=== PATIENT | female | born 1945 | race Asian ===

== ENCOUNTER 2016-10-18 00:06 | Emergency (ER) | payer MEDICARE, MEDICAID ==
[~2016-10-18] VITALS: Ht 142.2 cm; Wt 75.0 kg
[~2016-10-18 00:06] MED LIST: AMLO10TA4 PO; COR25 PO; INSLAN SQ; INSLIS SQ; LOSA50TA20 PO; MYCO360T PO; OMEP40CA34 PO; PRED10TA PO; PROG1 PO; VIT D3 PO
[2016-10-18] MEDS ORDERED: MORPHINE SULFATE 4 MG/ML CPJ (NOT FOR IM USE) IV STA ×2 (00:55→01:56)
[2016-10-18] MEDS ORDERED: SODIUM CHLORIDE 0.9% 1,000 ML IV ONE (00:55)
[2016-10-18] MEDS ORDERED: ONDANSETRON HCL 4MG/2ML VIAL IV STA ×2 (00:55→01:56)
[2016-10-18 01:09] LABS: BASOPHILS % 0.6 % (0.0-2.0); HEMATOCRIT. 41.4 % (36.0-48.0); HEMOGLOBIN. 13.8 g/dL (12.0-16.0); LYMPHOCYTES % 10.7 % (20.0-50.0); MEAN CORPUSCULAR HEMOGLOBIN 28.4 pg (28.0-32.0); MEAN CORPUSCULAR VOLUME 84.8 fL (81.0-99.0); MEAN PLATELET VOLUME 7.8 fl (7.4-10.4); MONOCYTES % 10.1 % (2.0-8.0); NEUTROPHILS % 77.6 % (40.0-76.0); PLATELET 200 x1000/uL (130-400); RED BLOOD CELL COUNT 4.88 mill/uL (4.2-5.4); RED CELL DISTRIBUTION WIDTH 14.9 % (11.6-14.6)
[2016-10-18 01:15] LABS: CHLORIDE 109 mEq/L (98-107)
[2016-10-18 01:17] LABS: PROTHROMBIN TIME 10.8 sec
[2016-10-18 01:23] LABS: CARBON DIOXIDE 26 mEq/L (21-32)
[2016-10-18 03:57] LABS: CLARITY URINE CLOUDY (CLEAR); COLOR URINE YELLOW (YELLOW); GLUCOSE URINE NEGATIVE (NEGATIVE); KETONES URINE 1+ (NEGATIVE); LEUKOCYTE ESTERASE URINE 1+ (NEGATIVE); NITRITE URINE NEGATIVE (NEGATIVE); OCCULT BLOOD URINE TRACE (NEGATIVE); PH URINE 6.5 (4.5-8.0); PROTEIN URINE NEGATIVE (NEGATIVE); SPECIFIC GRAVITY URINE 1.041 (1.005-1.030); UROBILINOGEN URINE 0.2 E.U./dL (0.2-1.0)
[2016-10-18] MEDS ORDERED: MORPHINE SULFATE 4 MG/ML CPJ (NOT FOR IM USE) IV ONE (05:45)
[2016-10-18] MEDS ORDERED: ONDANSETRON HCL 4MG/2ML VIAL IV ONE (05:45)
[2016-10-18] MEDS ORDERED: CEFTRIAXONE 1 G PREMIX 50 ML IV ONE (06:00)
[2016-10-18 06:03] VITALS: BP 198/72
== END 2016-10-18 06:58 | disposition short-term general hospital (02) ==
LOC: ER 00:07
DX: K31.1 Adult hypertrophic pyloric stenosis (principal); N39.0 Urinary tract infection, site not specified; R10.13 Epigastric pain; R07.89 Other chest pain; I12.9 Hypertensive chronic kidney disease with stage 1 through stage 4 chronic kidney disease, or unspecified chronic kidney disease; E11.22 Type 2 diabetes mellitus with diabetic chronic kidney disease; N18.9 Chronic kidney disease, unspecified; Z94.0 Kidney transplant status; Z79.4 Long term (current) use of insulin; Z79.899 Other long term (current) drug therapy
CPT/HCPCS: 36415; 71010; 74177; 76705; 80053; 81001; 83690; 84484; 85025; 85610; 93005; 96361; 96365; 96375; 96376; 99285; J0696; J2270; J2405; J7030; A4315

== ENCOUNTER → 2017-02-21 | Outpatient (CLI) | payer MEDICARE, MEDICAID ==
[~2017-02-21] MED LIST changes: +ASPI-1159 PO; +ATOR20TA PO; +DOCU-138 PO; +KETO5DRO80 EACHEYE; +[UNRECOGNIZED DRUG - CODE] MT
== END | disposition home or self-care (01) ==
LOC: MAMMO 10:36
PROVIDERS: ATTEND Internal Medicine Nephrology
DX: Z12.31 Encounter for screening mammogram for malignant neoplasm of breast (principal)
CPT/HCPCS: G0202

== ENCOUNTER → 2018-06-13 | Outpatient (CLI) | payer MEDICARE, MEDICAID | END | disposition home or self-care (01) | LOC: US 08:38 | PROVIDERS: ATTEND Urology | DX: N39.0 Urinary tract infection, site not specified (principal) ==

== ENCOUNTER → 2018-09-11 | Outpatient (CLI) | payer MEDICARE, MEDICAID | END | disposition home or self-care (01) | LOC: US 16:00 | PROVIDERS: ATTEND Internal Medicine Nephrology | DX: M85.80 Other specified disorders of bone density and structure, unspecified site (principal); I82.401 Acute embolism and thrombosis of unspecified deep veins of right lower extremity; I11.0 Hypertensive heart disease with heart failure; I50.41 Acute combined systolic (congestive) and diastolic (congestive) heart failure | CPT/HCPCS: 71045; 73502; 93971 ==

== ENCOUNTER → 2018-09-18 | Outpatient (CLI) | payer MEDICARE, MEDICAID | END | disposition home or self-care (01) | LOC: MRI 14:28 | PROVIDERS: ATTEND Internal Medicine Nephrology | DX: M47.816 Spondylosis without myelopathy or radiculopathy, lumbar region (principal); M48.061 Spinal stenosis, lumbar region without neurogenic claudication; M43.16 Spondylolisthesis, lumbar region | CPT/HCPCS: 72148 ==

== ENCOUNTER 2018-11-28 12:23 | Inpatient (IN) | payer MEDICARE, MEDICAID ==
[~2018-11-28] VITALS: Ht 160 cm; Wt 72.2 kg
[~2018-11-28 12:23] MED LIST changes: -ASPI-1159 PO; +ASPI-1393 PO; -LOSA50TA20 PO; +LOSA50TA41 PO
[2018-11-28 13:54] LABS: HEMATOCRIT. 39.9 % (36.0-48.0); HEMOGLOBIN. 13.5 g/dL (12.0-16.0); MEAN CORPUSCULAR HEMOGLOBIN 28.3 pg (28.0-32.0); MEAN CORPUSCULAR VOLUME 83.8 fL (81.0-99.0); MEAN PLATELET VOLUME 7.9 fl (7.4-10.4); PLATELET 220 x1000/uL (130-400); RED BLOOD CELL COUNT 4.77 mill/uL (4.2-5.4); RED CELL DISTRIBUTION WIDTH 15.1 % (11.6-14.6)
[2018-11-28 14:01] LABS: CHLORIDE 109 mEq/L (98-107)
[2018-11-28 14:06] LABS: BG BASE EXCESS -1.5 mmol/L (-2.0-2.0); BG CARBOXYHEMOGLOBIN 1.3 % (0.5-1.5); BG DEOXYHEMOGLOBIN 4.9 % (0.0-5.0); BG FRACTION INSPIRED OXYGEN 28; BG METHEMOGLOBIN 0.1 % (0.0-1.5); BG OXYHEMOGLOBIN 93.7 % (94.0-97.0); BG PCO2 33.7 mmHg (35.0-45.0); BG PH 7.433 (7.350-7.450); BG PO2 77.8 mmHg (75.0-100.0); BG SAMPLE SITE RIGHT BRACHIAL; BG TOTAL HEMOGLOBIN 13.5 g/dL (12.0-18.0); BG VENT MODE NASAL CANNULA
[2018-11-28 15:12] LABS: PLATELET ESTIMATE NORMAL
[2018-11-28] MEDS ORDERED: FUROSEMIDE 40MG/4ML VIAL IVP ONE (15:45)
[2018-11-28] MEDS ORDERED: LORAZEPAM 2MG/ML CPJ IV PRN (22:00)
[2018-11-28] MEDS ORDERED: ONDANSETRON HCL 4MG/2ML INJ IV PRN (22:00)
[2018-11-28] MEDS: AMLODIPINE 10MG TABLET PO SCH (22:00)
[2018-11-28] MEDS ORDERED: HYDROCODONE/ACETAMINOPHEN 5/325MG TABLET PO PRN (22:00)
[2018-11-28] MEDS ORDERED: CLONIDINE 0.1MG TABLET PO PRN (22:00)
[2018-11-28] MEDS ORDERED: LEVVL SQ (22:18)
[2018-11-28 22:30] VITALS: BP 150/74
[2018-11-28] MEDS: TACROLIMUS 0.5 MG CAPSULE PO SCH (23:00)
[2018-11-28] MEDS: ATORVASTATIN CALCIUM 20MG TABLET PO SCH (23:00)
[2018-11-28] MEDS ORDERED: DEXTROSE 50% WATER 50ML SYRINGE IV PRN (23:15)
[2018-11-29 01:02] LABS: CREATINE KINASE 103 IU/L (26-192)
[2018-11-29 01:03] LABS: CREATINE KINASE MB FRACTION < 1.0 ng/mL (0.5-3.6)
[2018-11-29] MEDS: IPRATROPIUM/ALBUTEROL 0.5-3(2.5)MG/3ML NEB INH PRN (03:35)
[2018-11-29 04:00] VITALS: BP 141/51
[2018-11-29] MEDS: BLOOD SUGAR DIAGNOSTIC STRIP TEST SCH ×4 (07:40→21:28)
[2018-11-29] MEDS: INSULIN LISPRO 100 UNITS/ML SUBCUT SCH ×3 (07:52→18:16)
[2018-11-29 08:00] VITALS: BP 140/39
[2018-11-29 08:06] LABS: CREATINE KINASE 80 IU/L (26-192)
[2018-11-29 08:07] LABS: CREATINE KINASE MB FRACTION < 1.0 ng/mL (0.5-3.6)
[2018-11-29] MEDS ORDERED: AMLODIPINE 10MG TABLET PO SCH (09:00)
[2018-11-29] MEDS: KETOROLAC TROMETHAMINE 0.4% OPHTH 5ML EACHEYE SCH ×2 (09:50→17:04)
[2018-11-29] MEDS: ATORVASTATIN CALCIUM 20MG TABLET PO SCH (09:50)
[2018-11-29] MEDS: FUROSEMIDE 40MG/4ML VIAL IV SCH (09:50)
[2018-11-29] MEDS: TACROLIMUS 0.5 MG CAPSULE PO SCH ×2 (09:51→21:28)
[2018-11-29] MEDS: MYCOPHENOLATE SODIUM 180 MG TABLET.DR PO SCH ×2 (09:51→21:28)
[2018-11-29] MEDS: ASPIRIN 81MG EC TABLET PO SCH (09:51)
[2018-11-29] MEDS: AMLODIPINE 10MG TABLET PO SCH (09:52)
[2018-11-29] MEDS: THIAMINE HCL 100MG TABLET PO SCH (09:52)
[2018-11-29 11:06] LABS: HEMATOCRIT. 37.5 % (36.0-48.0); HEMOGLOBIN. 12.4 g/dL (12.0-16.0); MEAN CORPUSCULAR HEMOGLOBIN 27.9 pg (28.0-32.0); MEAN CORPUSCULAR VOLUME 84.6 fL (81.0-99.0); MEAN PLATELET VOLUME 8.4 fl (7.4-10.4); PLATELET 219 x1000/uL (130-400); RED BLOOD CELL COUNT 4.44 mill/uL (4.2-5.4); RED CELL DISTRIBUTION WIDTH 15.3 % (11.6-14.6)
[2018-11-29 12:00] VITALS: BP 150/51
[2018-11-29 12:07] LABS: PLATELET ESTIMATE NORMAL
[2018-11-29] MEDS ORDERED: ACETAMINOPHEN 650MG/20.3ML UDC PO PRN (13:00)
[2018-11-29] MEDS ORDERED: ENOXAPARIN 60MG/0.6ML SYR SUBCUT NR (15:15)
[2018-11-29 16:00] VITALS: BP 125/39
[2018-11-29] MEDS: CEFTRIAXONE 1 G PREMIX 50 ML IV SCH (16:50)
[2018-11-29 19:45] LABS: CLARITY URINE CLEAR (CLEAR); COLOR URINE YELLOW (YELLOW); KETONES URINE NEGATIVE (NEGATIVE); LEUKOCYTE ESTERASE URINE TRACE (NEGATIVE); NITRITE URINE NEGATIVE (NEGATIVE); OCCULT BLOOD URINE NEGATIVE (NEGATIVE); PROTEIN URINE NEGATIVE (NEGATIVE); SPECIFIC GRAVITY URINE 1.009 (1.005-1.030); UROBILINOGEN URINE 0.2 E.U./dL (0.2-1.0)
[2018-11-29 20:00] VITALS: BP 130/42
[2018-11-30] VITALS: BP 138/42
[2018-11-30 04:00] VITALS: BP 155/51
[2018-11-30] MEDS: BLOOD SUGAR DIAGNOSTIC STRIP TEST SCH ×4 (06:16→20:26)
[2018-11-30 07:07] LABS: HEMATOCRIT. 36.6 % (36.0-48.0); HEMOGLOBIN. 12.1 g/dL (12.0-16.0); MEAN CORPUSCULAR HEMOGLOBIN 27.8 pg (28.0-32.0); MEAN CORPUSCULAR VOLUME 83.8 fL (81.0-99.0); MEAN PLATELET VOLUME 8.2 fl (7.4-10.4); PLATELET 227 x1000/uL (130-400); RED BLOOD CELL COUNT 4.37 mill/uL (4.2-5.4)
[2018-11-30 08:00] VITALS: BP 153/50
[2018-11-30] MEDS: INSULIN LISPRO 100 UNITS/ML SUBCUT SCH ×4 (08:47→21:13)
[2018-11-30] MEDS: ASPIRIN 81MG EC TABLET PO SCH (08:48)
[2018-11-30] MEDS: KETOROLAC TROMETHAMINE 0.4% OPHTH 5ML EACHEYE SCH ×2 (08:48→18:36)
[2018-11-30] MEDS: ENOXAPARIN 60MG/0.6ML SYR SUBCUT SCH (08:48)
[2018-11-30] MEDS: MYCOPHENOLATE SODIUM 180 MG TABLET.DR PO SCH ×2 (08:48→21:11)
[2018-11-30] MEDS: FUROSEMIDE 40MG/4ML VIAL IV SCH (08:48)
[2018-11-30] MEDS: THIAMINE HCL 100MG TABLET PO SCH (08:48)
[2018-11-30] MEDS: TACROLIMUS 0.5 MG CAPSULE PO SCH ×2 (08:48→21:11)
[2018-11-30] MEDS: AMLODIPINE 10MG TABLET PO SCH (08:52)
[2018-11-30] MEDS: IPRATROPIUM/ALBUTEROL 0.5-3(2.5)MG/3ML NEB INH PRN ×2 (09:24→14:53)
[2018-11-30 09:30] LABS: PLATELET ESTIMATE NORMAL
[2018-11-30] MEDS ORDERED: POTASSIUM CHLORIDE 20MEQ TABLET SR PO NR (09:30)
[2018-11-30] MEDS ORDERED: MAGNESIUM 2 G PREMIX 50 ML IV SCH (11:00)
[2018-11-30] MEDS ORDERED: FUROSEMIDE 40MG/4ML VIAL IVP SCH (11:30)
[2018-11-30 12:00] VITALS: BP 160/52
[2018-11-30] MEDS: PREDNISONE 10MG TABLET PO SCH (12:10)
[2018-11-30] MEDS: MAGNESIUM OXIDE 400MG TABLET PO SCH (12:10)
[2018-11-30] MEDS: CEFTRIAXONE 1 G PREMIX 50 ML IV SCH (14:48)
[2018-11-30 16:00] VITALS: BP 141/43
[2018-11-30 20:00] VITALS: BP 142/46
[2018-12-01 00:43] VITALS: BP 144/87
[2018-12-01 04:00] VITALS: BP 155/59
[2018-12-01] MEDS: BLOOD SUGAR DIAGNOSTIC STRIP TEST SCH ×4 (05:53→21:39)
[2018-12-01 08:00] VITALS: BP 151/53
[2018-12-01] MEDS: INSULIN LISPRO 100 UNITS/ML SUBCUT SCH ×4 (08:58→21:55)
[2018-12-01] MEDS: PREDNISONE 10MG TABLET PO SCH (08:59)
[2018-12-01] MEDS: MAGNESIUM OXIDE 400MG TABLET PO SCH (08:59)
[2018-12-01] MEDS: THIAMINE HCL 100MG TABLET PO SCH (08:59)
[2018-12-01] MEDS: ASPIRIN 81MG EC TABLET PO SCH (09:00)
[2018-12-01] MEDS: TACROLIMUS 0.5 MG CAPSULE PO SCH ×2 (09:02→21:54)
[2018-12-01] MEDS: FUROSEMIDE 40MG/4ML VIAL IV SCH (09:03)
[2018-12-01] MEDS: ENOXAPARIN 60MG/0.6ML SYR SUBCUT SCH (09:05)
[2018-12-01] MEDS: KETOROLAC TROMETHAMINE 0.4% OPHTH 5ML EACHEYE SCH ×2 (09:06→17:35)
[2018-12-01] MEDS: AMLODIPINE 10MG TABLET PO SCH (09:07)
[2018-12-01] MEDS: MYCOPHENOLATE SODIUM 180 MG TABLET.DR PO SCH ×2 (09:24→21:54)
[2018-12-01 09:43] LABS: HEMATOCRIT. 38.2 % (36.0-48.0); HEMOGLOBIN. 12.7 g/dL (12.0-16.0); MEAN CORPUSCULAR VOLUME 84.2 fL (81.0-99.0); MEAN PLATELET VOLUME 8.5 fl (7.4-10.4); PLATELET 204 x1000/uL (130-400); RED BLOOD CELL COUNT 4.54 mill/uL (4.2-5.4); RED CELL DISTRIBUTION WIDTH 15.1 % (11.6-14.6)
[2018-12-01] MEDS: INSULIN GLARGINE UD 100 UNITS/ML SYR SUBCUT SCH ×3 (10:00→21:56)
[2018-12-01 10:27] LABS: PLATELET ESTIMATE NORMAL
[2018-12-01] MEDS: IPRATROPIUM/ALBUTEROL 0.5-3(2.5)MG/3ML NEB INH PRN ×2 (11:43→16:55)
[2018-12-01 12:00] VITALS: BP 147/49
[2018-12-01] MEDS ORDERED: AMLODIPINE 2.5MG TABLET PO SCH (12:00)
[2018-12-01] MEDS ORDERED: FUROSEMIDE 40MG/4ML VIAL IVP SCH (13:15)
[2018-12-01] MEDS: LOSARTAN POTASSIUM 25 MG TABLET PO SCH ×2 (13:25→21:54)
[2018-12-01] MEDS: CEFTRIAXONE 1 G PREMIX 50 ML IV SCH (15:06)
[2018-12-01 16:00] VITALS: BP 133/40
[2018-12-01 20:00] VITALS: BP 140/66
[2018-12-01] MEDS: AMLODIPINE 2.5MG TABLET PO SCH (21:00)
[2018-12-02 00:05] VITALS: BP 159/50
[2018-12-02 04:00] VITALS: BP 147/49
[2018-12-02 05:33] LABS: CHLORIDE 103 mEq/L (98-107)
[2018-12-02 06:34] LABS: BASOPHILS % 0.9 % (0.0-2.0); EOSINOPHILS % 2.4 % (0.0-5.0); HEMATOCRIT. 36.8 % (36.0-48.0); HEMOGLOBIN. 12.4 g/dL (12.0-16.0); LYMPHOCYTES % 10.2 % (20.0-50.0); MEAN CORPUSCULAR HEMOGLOBIN 28.1 pg (28.0-32.0); MEAN CORPUSCULAR VOLUME 83.4 fL (81.0-99.0); MEAN PLATELET VOLUME 8.8 fl (7.4-10.4); MONOCYTES % 11.2 % (2.0-8.0); NEUTROPHILS % 75.3 % (40.0-76.0); PLATELET 216 x1000/uL (130-400); RED BLOOD CELL COUNT 4.42 mill/uL (4.2-5.4)
[2018-12-02] MEDS: BLOOD SUGAR DIAGNOSTIC STRIP TEST SCH ×4 (07:23→21:00)
[2018-12-02] MEDS: PREDNISONE 10MG TABLET PO SCH (07:57)
[2018-12-02] MEDS: INSULIN LISPRO 100 UNITS/ML SUBCUT SCH ×3 (07:58→21:23)
[2018-12-02 08:00] VITALS: BP 141/49
[2018-12-02] MEDS: KETOROLAC TROMETHAMINE 0.4% OPHTH 5ML EACHEYE SCH ×2 (08:04→17:38)
[2018-12-02] MEDS: MAGNESIUM OXIDE 400MG TABLET PO SCH (08:05)
[2018-12-02] MEDS: AMLODIPINE 2.5MG TABLET PO SCH ×2 (08:05→21:00)
[2018-12-02] MEDS: FUROSEMIDE 40MG/4ML VIAL IV SCH (08:05)
[2018-12-02] MEDS: TACROLIMUS 0.5 MG CAPSULE PO SCH ×2 (08:06→21:24)
[2018-12-02] MEDS: THIAMINE HCL 100MG TABLET PO SCH (08:06)
[2018-12-02] MEDS: MYCOPHENOLATE SODIUM 180 MG TABLET.DR PO SCH ×2 (08:06→21:24)
[2018-12-02] MEDS: LOSARTAN POTASSIUM 25 MG TABLET PO SCH ×2 (08:06→21:24)
[2018-12-02] MEDS: ASPIRIN 81MG EC TABLET PO SCH (08:06)
[2018-12-02] MEDS: ENOXAPARIN 60MG/0.6ML SYR SUBCUT SCH (08:07)
[2018-12-02] MEDS: INSULIN GLARGINE UD 100 UNITS/ML SYR SUBCUT SCH ×2 (10:09→21:23)
[2018-12-02] MEDS ORDERED: AZITHROMYCIN 500 MG TABLET PO SCH (11:45)
[2018-12-02 12:00] VITALS: BP 141/37
[2018-12-02] MEDS ORDERED: FUROSEMIDE 40MG/4ML VIAL IVP SCH (12:45)
[2018-12-02 16:00] VITALS: BP 129/43
[2018-12-02] MEDS: CEFTRIAXONE 1 G PREMIX 50 ML IV SCH (17:38)
[2018-12-02 20:00] VITALS: BP 139/48
[2018-12-02] MEDS ORDERED: CEPHALEXIN 250 MG/5 ML 100ML PO SCH (22:00)
[2018-12-03] VITALS: BP 147/65
[2018-12-03 04:00] VITALS: BP 131/48
[2018-12-03 06:54] LABS: CHLORIDE 105 mEq/L (98-107)
[2018-12-03 07:21] LABS: BASOPHILS % 1.2 % (0.0-2.0); EOSINOPHILS % 3.4 % (0.0-5.0); HEMATOCRIT. 38.4 % (36.0-48.0); HEMOGLOBIN. 12.7 g/dL (12.0-16.0); MEAN CORPUSCULAR HEMOGLOBIN 27.7 pg (28.0-32.0); MEAN CORPUSCULAR VOLUME 83.8 fL (81.0-99.0); MEAN PLATELET VOLUME 7.9 fl (7.4-10.4); MONOCYTES % 10.8 % (2.0-8.0); NEUTROPHILS % 71.6 % (40.0-76.0); PLATELET 294 x1000/uL (130-400); RED BLOOD CELL COUNT 4.58 mill/uL (4.2-5.4)
[2018-12-03] MEDS: BLOOD SUGAR DIAGNOSTIC STRIP TEST SCH ×4 (07:25→21:19)
[2018-12-03] MEDS: INSULIN LISPRO 100 UNITS/ML SUBCUT SCH ×4 (07:25→21:20)
[2018-12-03 08:00] VITALS: BP 146/39
[2018-12-03] MEDS: KETOROLAC TROMETHAMINE 0.4% OPHTH 5ML EACHEYE SCH ×2 (08:26→17:07)
[2018-12-03] MEDS: TACROLIMUS 0.5 MG CAPSULE PO SCH ×2 (08:27→21:19)
[2018-12-03] MEDS: MYCOPHENOLATE SODIUM 180 MG TABLET.DR PO SCH ×2 (08:28→21:19)
[2018-12-03] MEDS: FUROSEMIDE 40MG/4ML VIAL IV SCH ×2 (08:28→17:06)
[2018-12-03] MEDS: ASPIRIN 81MG EC TABLET PO SCH (08:28)
[2018-12-03] MEDS: AMLODIPINE 2.5MG TABLET PO SCH ×2 (08:29→21:19)
[2018-12-03] MEDS: AZITHROMYCIN 500 MG TABLET PO SCH (08:29)
[2018-12-03] MEDS: MAGNESIUM OXIDE 400MG TABLET PO SCH (08:30)
[2018-12-03] MEDS: LOSARTAN POTASSIUM 25 MG TABLET PO SCH ×2 (08:30→21:21)
[2018-12-03] MEDS: THIAMINE HCL 100MG TABLET PO SCH (08:30)
[2018-12-03] MEDS: ENOXAPARIN 60MG/0.6ML SYR SUBCUT SCH (08:45)
[2018-12-03] MEDS: PREDNISONE 10MG TABLET PO SCH (08:45)
[2018-12-03] MEDS: FORTEO SUBCUT SCH (09:28)
[2018-12-03] MEDS: INSULIN GLARGINE UD 100 UNITS/ML SYR SUBCUT SCH ×2 (11:27→21:21)
[2018-12-03 12:00] VITALS: BP 139/45
[2018-12-03 12:55] LABS: INR 1.1; PROTHROMBIN TIME 11.2 sec (9.6-11.0)
[2018-12-03] MEDS: CEFTRIAXONE 1 G PREMIX 50 ML IV SCH (15:08)
[2018-12-03 16:00] VITALS: BP 146/45
[2018-12-03] MEDS: APIXABAN 5 MG TABLET PO SCH (17:05)
[2018-12-03 20:00] VITALS: BP 142/36
[2018-12-03] MEDS ORDERED: ENOXAPARIN 80MG/0.8ML SYR SUBCUT SCH (21:00)
[2018-12-04] VITALS: BP 140/49
[2018-12-04 04:00] VITALS: BP 147/46
[2018-12-04] MEDS: FUROSEMIDE 40MG/4ML VIAL IV SCH ×2 (06:30→17:30)
[2018-12-04 06:54] LABS: CHLORIDE 105 mEq/L (98-107)
[2018-12-04 07:01] LABS: BASOPHILS % 1.2 % (0.0-2.0); EOSINOPHILS % 2.9 % (0.0-5.0); HEMATOCRIT. 37.2 % (36.0-48.0); HEMOGLOBIN. 12.4 g/dL (12.0-16.0); LYMPHOCYTES % 14.1 % (20.0-50.0); MEAN CORPUSCULAR HEMOGLOBIN 27.8 pg (28.0-32.0); MEAN CORPUSCULAR VOLUME 83.4 fL (81.0-99.0); MEAN PLATELET VOLUME 7.7 fl (7.4-10.4); MONOCYTES % 11.1 % (2.0-8.0); NEUTROPHILS % 70.7 % (40.0-76.0); PLATELET 290 x1000/uL (130-400); RED BLOOD CELL COUNT 4.47 mill/uL (4.2-5.4); RED CELL DISTRIBUTION WIDTH 15.1 % (11.6-14.6)
[2018-12-04] MEDS: BLOOD SUGAR DIAGNOSTIC STRIP TEST SCH ×3 (07:40→17:32)
[2018-12-04 08:00] VITALS: BP 143/40
[2018-12-04] MEDS: INSULIN LISPRO 100 UNITS/ML SUBCUT SCH ×3 (08:10→17:33)
[2018-12-04] MEDS: KETOROLAC TROMETHAMINE 0.4% OPHTH 5ML EACHEYE SCH ×2 (08:54→17:30)
[2018-12-04] MEDS: PREDNISONE 10MG TABLET PO SCH (08:54)
[2018-12-04] MEDS: AMLODIPINE 2.5MG TABLET PO SCH (08:54)
[2018-12-04] MEDS: THIAMINE HCL 100MG TABLET PO SCH (08:54)
[2018-12-04] MEDS: TACROLIMUS 0.5 MG CAPSULE PO SCH (08:55)
[2018-12-04] MEDS: ASPIRIN 81MG EC TABLET PO SCH (08:55)
[2018-12-04] MEDS: APIXABAN 5 MG TABLET PO SCH ×2 (08:55→17:30)
[2018-12-04] MEDS: MYCOPHENOLATE SODIUM 180 MG TABLET.DR PO SCH (08:55)
[2018-12-04] MEDS: AZITHROMYCIN 500 MG TABLET PO SCH (08:56)
[2018-12-04] MEDS: LOSARTAN POTASSIUM 25 MG TABLET PO SCH (08:56)
[2018-12-04] MEDS: MAGNESIUM OXIDE 400MG TABLET PO SCH (08:56)
[2018-12-04] MEDS: FORTEO SUBCUT SCH (10:21)
[2018-12-04] MEDS: INSULIN GLARGINE UD 100 UNITS/ML SYR SUBCUT SCH (10:22)
[2018-12-04 12:00] VITALS: BP 125/37
[2018-12-04] MEDS: CEFTRIAXONE 1 G PREMIX 50 ML IV SCH (14:33)
[2018-12-04 16:00] VITALS: BP 143/60
[2018-12-04 16:57] VITALS: BP 143/60
[2018-12-04] MEDS ORDERED: INSULIN LISPRO 100 UNITS/ML SUBCUT NR ×2 (17:15→18:20)
== END 2018-12-04 19:30 | disposition home health service (06) | DRG 871 ==
LOC: ER 13:38 → 7WST 17:38 → EDBEDREQ 17:40 → ENRESERV 20:50
PROVIDERS: ADMIT Internal Medicine Nephrology; ATTEND Internal Medicine Nephrology
PROC: 5A09357 Assistance with Respiratory Ventilation, Less than 24 Consecutive Hours, Continuous Positive Airway Pressure (ICD-10-PCS; principal; 2018-11-30)
PROC: 5A09357 Assistance with Respiratory Ventilation, Less than 24 Consecutive Hours, Continuous Positive Airway Pressure (ICD-10-PCS; 2018-12-01)
PROC: 5A09357 Assistance with Respiratory Ventilation, Less than 24 Consecutive Hours, Continuous Positive Airway Pressure (ICD-10-PCS; 2018-12-02)
PROC: 5A09357 Assistance with Respiratory Ventilation, Less than 24 Consecutive Hours, Continuous Positive Airway Pressure (ICD-10-PCS; 2018-12-03)
PROC: 5A09357 Assistance with Respiratory Ventilation, Less than 24 Consecutive Hours, Continuous Positive Airway Pressure (ICD-10-PCS; 2018-12-04)
DX: A41.50 Gram-negative sepsis, unspecified (principal); J96.00 Acute respiratory failure, unspecified whether with hypoxia or hypercapnia; I50.33 Acute on chronic diastolic (congestive) heart failure; N39.0 Urinary tract infection, site not specified; E44.1 Mild protein-calorie malnutrition; I48.1 Persistent atrial fibrillation; Z94.0 Kidney transplant status; G47.33 Obstructive sleep apnea (adult) (pediatric); I11.0 Hypertensive heart disease with heart failure; I48.91 Unspecified atrial fibrillation; I35.0 Nonrheumatic aortic (valve) stenosis; E87.8 Other disorders of electrolyte and fluid balance, not elsewhere classified; E11.9 Type 2 diabetes mellitus without complications; E83.42 Hypomagnesemia; B96.89 Other specified bacterial agents as the cause of diseases classified elsewhere; E78.00 Pure hypercholesterolemia, unspecified; E78.5 Hyperlipidemia, unspecified; E87.6 Hypokalemia; M19.90 Unspecified osteoarthritis, unspecified site; R00.1 Bradycardia, unspecified; I27.22 Pulmonary hypertension due to left heart disease; Z79.4 Long term (current) use of insulin; Z91.81 History of falling; Z90.49 Acquired absence of other specified parts of digestive tract; Z79.899 Other long term (current) drug therapy
CPT/HCPCS: 36415; 36600; 71045; 80048; 80076; 82248; 82375; 82550; 82553; 82805; 82962; 83735; 83880; 84443; 84484; 87077; 87186; 93005; 93306; 94640; 94660; 96374; 97116; 97162; 99285; C1893; J0696; J1650; J1815; J1940; J3475; J7050; J7507; J7512; J7517; J7620

== ENCOUNTER 2019-02-18 09:57 | Inpatient (IN) | payer MEDICARE, MEDICAID ==
[~2019-02-18] VITALS: Ht 134.6 cm; Wt 67.8 kg
[2019-02-18] VITALS (8 sets, daily range): BP systolic 140–192; BP diastolic 42–111
[~2019-02-18 09:57] MED LIST changes: -COR25 PO; +LEVVL SQ; -LOSA50TA41 PO
[2019-02-18 11:02] LABS: HEMATOCRIT. 38.9 % (36.0-48.0); HEMOGLOBIN. 12.5 g/dL (12.0-16.0); MEAN CORPUSCULAR HEMOGLOBIN 27.7 pg (28.0-32.0); MEAN CORPUSCULAR VOLUME 86.3 fL (81.0-99.0); PLATELET 221 x1000/uL (130-400); RED BLOOD CELL COUNT 4.51 mill/uL (4.2-5.4); RED CELL DISTRIBUTION WIDTH 18.1 % (11.6-14.6)
[2019-02-18 11:03] LABS: CHLORIDE 111 mEq/L (98-107)
[2019-02-18 11:40] LABS: PLATELET ESTIMATE NORMAL
[2019-02-18 12:43] LABS: BG BASE EXCESS -1.5 mmol/L (-2.0-2.0); BG CARBOXYHEMOGLOBIN 0.3 % (0.5-1.5); BG DEOXYHEMOGLOBIN 0.8 % (0.0-5.0); BG FRACTION INSPIRED OXYGEN 100; BG HCO3 ACT 23.1 mmol/L (22.0-26.0); BG METHEMOGLOBIN 0.4 % (0.0-1.5); BG OXYGEN SATURATION 99.2 % (92.0-98.5); BG OXYHEMOGLOBIN 98.5 % (94.0-97.0); BG PCO2 38.5 mmHg (35.0-45.0); BG PH 7.396 (7.350-7.450); BG PO2 440.1 mmHg (75.0-100.0); BG SAMPLE SITE RIGHT BRACHIAL; BG TOTAL HEMOGLOBIN 12.2 g/dL (12.0-18.0); BG VENT MODE MASK - BIPAP; BG VENT RATE 12 set
[2019-02-18 16:30] LABS: BG CARBOXYHEMOGLOBIN 0.3 % (0.5-1.5); BG DEOXYHEMOGLOBIN 1.2 % (0.0-5.0); BG FRACTION INSPIRED OXYGEN 50; BG HCO3 ACT 24.2 mmol/L (22.0-26.0); BG METHEMOGLOBIN 0.2 % (0.0-1.5); BG OXYGEN SATURATION 98.8 % (92.0-98.5); BG OXYHEMOGLOBIN 98.3 % (94.0-97.0); BG PCO2 37.5 mmHg (35.0-45.0); BG PH 7.427 (7.350-7.450); BG PO2 177.6 mmHg (75.0-100.0); BG SAMPLE SITE RIGHT BRACHIAL; BG TOTAL HEMOGLOBIN 11.5 g/dL (12.0-18.0); BG VENT MODE MASK - BIPAP; BG VENT RATE 12 set
[2019-02-18] MEDS ORDERED: CLONIDINE 0.1MG TABLET PO PRN ×2 (20:30→21:45)
[2019-02-18] MEDS: METOPROLOL TARTRATE 25MG TABLET PO SCH (20:41)
[2019-02-18] MEDS ORDERED: MORPHINE SULFATE 2 MG/ML CPJ (NOT FOR IM USE) IV PRN (21:45)
[2019-02-18] MEDS ORDERED: HYDROCODONE/ACETAMINOPHEN 5/325MG TABLET PO PRN (21:45)
[2019-02-18] MEDS ORDERED: ONDANSETRON HCL 4MG/2ML INJ IV PRN (21:45)
[2019-02-18] MEDS ORDERED: IPRATROPIUM/ALBUTEROL 0.5-3(2.5)MG/3ML NEB NEB PRN (21:45)
[2019-02-18] MEDS ORDERED: DEXTROSE 50% WATER 50ML SYRINGE IV PRN (22:00)
[2019-02-18] MEDS: BLOOD SUGAR DIAGNOSTIC STRIP TEST SCH (22:04)
[2019-02-18] MEDS: FUROSEMIDE 40MG/4ML VIAL IV SCH (22:09)
[2019-02-18] MEDS: ENOXAPARIN 40MG/0.4ML SYR SUBCUT SCH (22:10)
[2019-02-18] MEDS: INSULIN LISPRO 100 UNITS/ML SUBCUT SCH (22:23)
[2019-02-19] VITALS (10 sets, daily range): BP systolic 109–167; BP diastolic 38–59
[2019-02-19] MEDS: BLOOD SUGAR DIAGNOSTIC STRIP TEST SCH ×4 (06:19→21:31)
[2019-02-19] MEDS: FUROSEMIDE 40MG/4ML VIAL IV SCH ×2 (06:29→16:47)
[2019-02-19] MEDS: INSULIN LISPRO 100 UNITS/ML SUBCUT SCH ×4 (06:30→21:28)
[2019-02-19] MEDS ORDERED: BLOOD SUGAR DIAGNOSTIC STRIP TEST SCH (06:50)
[2019-02-19] MEDS ORDERED: INSULIN LISPRO 100 UNITS/ML SUBCUT SCH (07:20)
[2019-02-19] MEDS: METOPROLOL TARTRATE 25MG TABLET PO SCH (09:00)
[2019-02-19] MEDS: ASPIRIN 81MG EC TABLET PO SCH (09:25)
[2019-02-19] MEDS: THIAMINE HCL 100MG TABLET PO SCH (09:25)
[2019-02-19] MEDS ORDERED: AMIO100T4 PO (09:50)
[2019-02-19] MEDS ORDERED: HYDR-4134 MT (09:50)
[2019-02-19] MEDS ORDERED: APIX5TAB MT (09:50)
[2019-02-19] MEDS ORDERED: PRED5TAB MT (09:50)
[2019-02-19] MEDS ORDERED: FURO20TA4 MT (09:50)
[2019-02-19 09:51] LABS: CLARITY URINE CLOUDY (CLEAR); COLOR URINE YELLOW (YELLOW); KETONES URINE NEGATIVE (NEGATIVE); LEUKOCYTE ESTERASE URINE 2+ (NEGATIVE); NITRITE URINE NEGATIVE (NEGATIVE); OCCULT BLOOD URINE NEGATIVE (NEGATIVE); PROTEIN URINE NEGATIVE (NEGATIVE); SPECIFIC GRAVITY URINE 1.011 (1.005-1.030); UROBILINOGEN URINE 0.2 E.U./dL (0.2-1.0)
[2019-02-19] MEDS ORDERED: INSU100C6 SQ (09:51)
[2019-02-19] MEDS: PREDNISONE 5MG TABLET PO SCH ×2 (11:03→13:15)
[2019-02-19 12:37] LABS: HEMATOCRIT. 33.7 % (36.0-48.0); HEMOGLOBIN. 10.9 g/dL (12.0-16.0); MEAN CORPUSCULAR HEMOGLOBIN 28.2 pg (28.0-32.0); MEAN PLATELET VOLUME 8.6 fl (7.4-10.4); PLATELET 126 x1000/uL (130-400); RED BLOOD CELL COUNT 3.87 mill/uL (4.2-5.4); RED CELL DISTRIBUTION WIDTH 17.9 % (11.6-14.6)
[2019-02-19 13:14] LABS: PLATELET ESTIMATE SLIGHTLY DECREASED
[2019-02-19] MEDS: CEFTRIAXONE 1 G PREMIX 50 ML IV SCH (13:15)
[2019-02-19] MEDS: MYCOPHENOLATE SODIUM 180 MG TABLET.DR PO SCH (16:47)
[2019-02-19] MEDS ORDERED: TACROLIMUS 1MG CAPSULE PO SCH (17:00)
[2019-02-19] MEDS ORDERED: MYCOPHENOLATE SODIUM 360 MG PO SCH (17:00)
[2019-02-19] MEDS: IPRATROPIUM/ALBUTEROL 0.5-3(2.5)MG/3ML NEB HHN SCH (20:40)
[2019-02-19] MEDS: INSULIN GLARGINE UD 100 UNITS/ML SYR SUBCUT SCH (21:30)
[2019-02-19] MEDS: ENOXAPARIN 40MG/0.4ML SYR SUBCUT SCH (21:31)
[2019-02-20] VITALS (12 sets, daily range): BP systolic 130–200; BP diastolic 39–77
[2019-02-20] MEDS: IPRATROPIUM/ALBUTEROL 0.5-3(2.5)MG/3ML NEB HHN SCH ×4 (00:57→21:22)
[2019-02-20] MEDS: MYCOPHENOLATE SODIUM 180 MG TABLET.DR PO SCH ×2 (06:17→17:18)
[2019-02-20] MEDS: TACROLIMUS 1MG CAPSULE PO SCH ×2 (06:17→17:19)
[2019-02-20] MEDS: BLOOD SUGAR DIAGNOSTIC STRIP TEST SCH ×4 (06:18→20:41)
[2019-02-20] MEDS: PREDNISONE 5MG TABLET PO SCH (06:18)
[2019-02-20 06:20] LABS: BASOPHILS % 0.6 % (0.0-2.0); EOSINOPHILS % 1.1 % (0.0-5.0); HEMATOCRIT. 34.6 % (36.0-48.0); HEMOGLOBIN. 11.2 g/dL (12.0-16.0); LYMPHOCYTES % 7.1 % (20.0-50.0); MEAN CORPUSCULAR HEMOGLOBIN 27.8 pg (28.0-32.0); MEAN CORPUSCULAR VOLUME 85.4 fL (81.0-99.0); NEUTROPHILS % 77.2 % (40.0-76.0); PLATELET 199 x1000/uL (130-400); RED BLOOD CELL COUNT 4.05 mill/uL (4.2-5.4); RED CELL DISTRIBUTION WIDTH 17.7 % (11.6-14.6)
[2019-02-20] MEDS: FUROSEMIDE 40MG/4ML VIAL IV SCH ×3 (07:42→19:08)
[2019-02-20] MEDS: INSULIN LISPRO 100 UNITS/ML SUBCUT SCH ×4 (07:43→22:12)
[2019-02-20] MEDS: THIAMINE HCL 100MG TABLET PO SCH (08:00)
[2019-02-20] MEDS: ASPIRIN 81MG EC TABLET PO SCH (08:00)
[2019-02-20] MEDS: INSULIN GLARGINE UD 100 UNITS/ML SYR SUBCUT SCH ×2 (11:23→22:12)
[2019-02-20] MEDS: CEFTRIAXONE 1 G PREMIX 50 ML IV SCH (11:24)
[2019-02-20] MEDS ORDERED: AMLODIPINE 2.5MG TABLET PO NR (11:30)
[2019-02-20] MEDS ORDERED: LIDOCAINE HCL 1% 20ML VIAL (Pyxis) INJ ONE (13:46)
[2019-02-20] MEDS: AMLODIPINE 2.5MG TABLET PO SCH (20:37)
[2019-02-20] MEDS: ENOXAPARIN 40MG/0.4ML SYR SUBCUT SCH (20:38)
[2019-02-21] VITALS (11 sets, daily range): BP systolic 118–159; BP diastolic 35–62
[2019-02-21] MEDS: IPRATROPIUM/ALBUTEROL 0.5-3(2.5)MG/3ML NEB HHN SCH ×4 (02:55→20:35)
[2019-02-21] MEDS: FUROSEMIDE 40MG/4ML VIAL IV SCH ×3 (03:07→18:52)
[2019-02-21] MEDS: PREDNISONE 5MG TABLET PO SCH ×2 (06:00→09:00)
[2019-02-21 06:12] LABS: EOSINOPHILS % 3.3 % (0.0-5.0); HEMATOCRIT. 38.5 % (36.0-48.0); HEMOGLOBIN. 12.5 g/dL (12.0-16.0); LYMPHOCYTES % 11.5 % (20.0-50.0); MEAN CORPUSCULAR HEMOGLOBIN 27.8 pg (28.0-32.0); MEAN CORPUSCULAR VOLUME 85.7 fL (81.0-99.0); MEAN PLATELET VOLUME 7.8 fl (7.4-10.4); MONOCYTES % 13.9 % (2.0-8.0); NEUTROPHILS % 70.3 % (40.0-76.0); PLATELET 225 x1000/uL (130-400); RED BLOOD CELL COUNT 4.49 mill/uL (4.2-5.4); RED CELL DISTRIBUTION WIDTH 17.4 % (11.6-14.6)
[2019-02-21] MEDS: MYCOPHENOLATE SODIUM 180 MG TABLET.DR PO SCH ×2 (06:50→20:24)
[2019-02-21] MEDS: BLOOD SUGAR DIAGNOSTIC STRIP TEST SCH ×4 (06:50→20:27)
[2019-02-21] MEDS: INSULIN LISPRO 100 UNITS/ML SUBCUT SCH ×4 (07:20→20:28)
[2019-02-21] MEDS: SODIUM CHLORIDE 0.45% 1,000 ML IV SCH (07:39)
[2019-02-21] MEDS: AMLODIPINE 2.5MG TABLET PO SCH ×2 (09:00→20:25)
[2019-02-21] MEDS: ASPIRIN 81MG EC TABLET PO SCH (09:00)
[2019-02-21] MEDS: TACROLIMUS 1MG CAPSULE PO SCH ×4 (09:00→20:24)
[2019-02-21] MEDS: THIAMINE HCL 100MG TABLET PO SCH (09:00)
[2019-02-21] MEDS ORDERED: KCL 20MEQ/100ML PREMIX 100 ML IV NR (09:00)
[2019-02-21] MEDS ORDERED: LIDOCAINE HCL 1% 20ML VIAL (Pyxis) INJ ONE (10:59)
[2019-02-21] MEDS ORDERED: IODIXANOL 320MG/ML 100 ML BOTTLE IV ONE (10:59)
[2019-02-21] MEDS ORDERED: MIDAZOLAM HCL 2 MG/2 ML VIAL ONE (11:10)
[2019-02-21] MEDS ORDERED: FENTANYL CITRATE/PF 50MCG/ML 2ML VIAL ONE (11:10)
[2019-02-21] MEDS ORDERED: IOHEXOL-300 100 ML BOTTLE ONE (11:34)
[2019-02-21] MEDS ORDERED: HEPARIN SODIUM 1,000 UNIT/1ML VIAL IV ONE (12:00)
[2019-02-21] MEDS ORDERED: CLOPIDOGREL 75MG TABLET ONE (12:07)
[2019-02-21] MEDS ORDERED: ASPIRIN 325MG EC TABLET PO ONE (12:14)
[2019-02-21] MEDS ORDERED: ATROPINE SULFATE 1MG/10ML SYR IV PRN (12:15)
[2019-02-21] MEDS ORDERED: ONDANSETRON HCL 4MG/2ML INJ IV PRN (12:15)
[2019-02-21] MEDS ORDERED: ACETAMINOPHEN 325MG TABLET PO PRN (12:15)
[2019-02-21] MEDS: INSULIN GLARGINE UD 100 UNITS/ML SYR SUBCUT SCH ×2 (13:13→21:22)
[2019-02-21] MEDS ORDERED: POTASSIUM CHLORIDE 20MEQ TABLET SR PO NR (14:45)
[2019-02-21] MEDS: CEFTRIAXONE 1 G PREMIX 50 ML IV SCH (17:07)
[2019-02-21] MEDS: ENOXAPARIN 30MG/0.3ML SYR SUBCUT SCH (20:27)
[2019-02-22] VITALS (10 sets, daily range): BP systolic 103–170; BP diastolic 42–65
[2019-02-22] MEDS: IPRATROPIUM/ALBUTEROL 0.5-3(2.5)MG/3ML NEB HHN SCH ×4 (01:22→21:00)
[2019-02-22] MEDS: SODIUM CHLORIDE 0.45% 1,000 ML IV SCH ×2 (02:04→18:21)
[2019-02-22] MEDS: FUROSEMIDE 40MG/4ML VIAL IV SCH ×4 (03:30→21:11)
[2019-02-22] MEDS: BLOOD SUGAR DIAGNOSTIC STRIP TEST SCH ×4 (06:04→20:01)
[2019-02-22] MEDS: MYCOPHENOLATE SODIUM 180 MG TABLET.DR PO SCH ×2 (06:06→18:10)
[2019-02-22] MEDS: TACROLIMUS 1MG CAPSULE PO SCH ×2 (06:21→18:09)
[2019-02-22] MEDS: INSULIN LISPRO 100 UNITS/ML SUBCUT SCH ×4 (06:21→20:08)
[2019-02-22 07:22] LABS: BASOPHILS % 1.2 % (0.0-2.0); EOSINOPHILS % 2.1 % (0.0-5.0); HEMATOCRIT. 32.6 % (36.0-48.0); HEMOGLOBIN. 10.7 g/dL (12.0-16.0); LYMPHOCYTES % 11.4 % (20.0-50.0); MEAN CORPUSCULAR HEMOGLOBIN 28.1 pg (28.0-32.0); MEAN CORPUSCULAR VOLUME 85.6 fL (81.0-99.0); MEAN PLATELET VOLUME 7.9 fl (7.4-10.4); NEUTROPHILS % 72.3 % (40.0-76.0); PLATELET 246 x1000/uL (130-400); RED BLOOD CELL COUNT 3.81 mill/uL (4.2-5.4); RED CELL DISTRIBUTION WIDTH 17.3 % (11.6-14.6)
[2019-02-22 07:48] LABS: CHLORIDE 105 mEq/L (98-107)
[2019-02-22] MEDS: PANTOPRAZOLE SODIUM 40 MG/VIAL IV SCH ×3 (09:00→14:12)
[2019-02-22] MEDS: THIAMINE HCL 100MG TABLET PO SCH (09:33)
[2019-02-22] MEDS: PREDNISONE 5MG TABLET PO SCH (09:33)
[2019-02-22] MEDS: CLOPIDOGREL 75MG TABLET PO SCH (09:33)
[2019-02-22] MEDS: AMLODIPINE 2.5MG TABLET PO SCH ×2 (09:36→20:06)
[2019-02-22] MEDS: ASPIRIN 325MG TABLET PO SCH (09:36)
[2019-02-22] MEDS: INSULIN GLARGINE UD 100 UNITS/ML SYR SUBCUT SCH ×2 (09:39→22:15)
[2019-02-22] MEDS: ENOXAPARIN 30MG/0.3ML SYR SUBCUT SCH (10:31)
[2019-02-22] MEDS: DOCUSATE SODIUM 100MG CAPSULE PO SCH ×2 (11:12→18:09)
[2019-02-22] MEDS ORDERED: LIDOCAINE HCL 1% 20ML VIAL (Pyxis) INJ ONE (12:46)
[2019-02-22] MEDS: CEFTRIAXONE 1 G PREMIX 50 ML IV SCH (14:13)
[2019-02-22] MEDS: ENOXAPARIN 40MG/0.4ML SYR SUBCUT SCH (14:16)
[2019-02-23] VITALS (10 sets, daily range): BP systolic 120–177; BP diastolic 38–83
[2019-02-23] MEDS: IPRATROPIUM/ALBUTEROL 0.5-3(2.5)MG/3ML NEB HHN SCH ×3 (01:33→13:15)
[2019-02-23] MEDS: FUROSEMIDE 40MG/4ML VIAL IV SCH ×2 (05:06→11:01)
[2019-02-23] MEDS: BLOOD SUGAR DIAGNOSTIC STRIP TEST SCH ×2 (06:08→11:12)
[2019-02-23] MEDS: MYCOPHENOLATE SODIUM 180 MG TABLET.DR PO SCH (06:08)
[2019-02-23] MEDS: TACROLIMUS 1MG CAPSULE PO SCH (06:08)
[2019-02-23 07:43] LABS: BASOPHILS % 0.9 % (0.0-2.0); EOSINOPHILS % 1.9 % (0.0-5.0); HEMATOCRIT. 28.1 % (36.0-48.0); HEMOGLOBIN. 9.1 g/dL (12.0-16.0); LYMPHOCYTES % 10.3 % (20.0-50.0); MEAN CORPUSCULAR HEMOGLOBIN 27.7 pg (28.0-32.0); MEAN CORPUSCULAR VOLUME 85.5 fL (81.0-99.0); MONOCYTES % 13.2 % (2.0-8.0); NEUTROPHILS % 73.7 % (40.0-76.0); PLATELET 213 x1000/uL (130-400); RED BLOOD CELL COUNT 3.29 mill/uL (4.2-5.4)
[2019-02-23] MEDS: ASPIRIN 325MG TABLET PO SCH (08:24)
[2019-02-23] MEDS: INSULIN LISPRO 100 UNITS/ML SUBCUT SCH ×2 (08:24→12:31)
[2019-02-23] MEDS: PREDNISONE 5MG TABLET PO SCH (08:24)
[2019-02-23] MEDS: DOCUSATE SODIUM 100MG CAPSULE PO SCH (08:24)
[2019-02-23] MEDS: CLOPIDOGREL 75MG TABLET PO SCH (08:24)
[2019-02-23] MEDS: THIAMINE HCL 100MG TABLET PO SCH (08:27)
[2019-02-23] MEDS: AMLODIPINE 2.5MG TABLET PO SCH (08:27)
[2019-02-23] MEDS: CEFTRIAXONE 1 G PREMIX 50 ML IV SCH (11:02)
[2019-02-23] MEDS: INSULIN GLARGINE UD 100 UNITS/ML SYR SUBCUT SCH (11:05)
[2019-02-23] MEDS: ENOXAPARIN 40MG/0.4ML SYR SUBCUT SCH (15:48)
[2019-03-22] MEDS ORDERED: ALLO100T57 MT (23:02)
[2019-04-03] MEDS ORDERED: POTA20TA82 MT (16:32)
[2019-04-03] MEDS ORDERED: FURO80TA87 MT (16:32)
[2019-04-03] MEDS ORDERED: ASPI-1393 MT (16:33)
== END 2019-02-23 17:10 | disposition home health service (06) | DRG 853 ==
LOC: ER 09:57 → 3WST 12:57 → EDBEDREQ 12:59 → ENRESERV 13:58
PROVIDERS: ADMIT Internal Medicine Nephrology; ATTEND Internal Medicine Nephrology
PROC: 5A09357 Assistance with Respiratory Ventilation, Less than 24 Consecutive Hours, Continuous Positive Airway Pressure (ICD-10-PCS; 2019-02-18)
PROC: 027034Z Dilation of Coronary Artery, One Artery with Drug-eluting Intraluminal Device, Percutaneous Approach (ICD-10-PCS; principal; 2019-02-21)
PROC: B240ZZ3 Ultrasonography of Single Coronary Artery, Intravascular (ICD-10-PCS; 2019-02-21)
PROC: 4A023N8 Measurement of Cardiac Sampling and Pressure, Bilateral, Percutaneous Approach (ICD-10-PCS; 2019-02-21)
PROC: B2111ZZ Fluoroscopy of Multiple Coronary Arteries using Low Osmolar Contrast (ICD-10-PCS; 2019-02-21)
PROC: 02HV33Z Insertion of Infusion Device into Superior Vena Cava, Percutaneous Approach (ICD-10-PCS; 2019-02-22)
PROC: B548ZZA Ultrasonography of Superior Vena Cava, Guidance (ICD-10-PCS; 2019-02-22)
DX: A41.50 Gram-negative sepsis, unspecified (principal); I50.33 Acute on chronic diastolic (congestive) heart failure; J96.01 Acute respiratory failure with hypoxia; N18.6 End stage renal disease; I13.2 Hypertensive heart and chronic kidney disease with heart failure and with stage 5 chronic kidney disease, or end stage renal disease; N39.0 Urinary tract infection, site not specified; J84.9 Interstitial pulmonary disease, unspecified; Z94.0 Kidney transplant status; D63.8 Anemia in other chronic diseases classified elsewhere; E11.22 Type 2 diabetes mellitus with diabetic chronic kidney disease; E66.9 Obesity, unspecified; E78.5 Hyperlipidemia, unspecified; E87.8 Other disorders of electrolyte and fluid balance, not elsewhere classified; F41.9 Anxiety disorder, unspecified; G47.33 Obstructive sleep apnea (adult) (pediatric); M19.90 Unspecified osteoarthritis, unspecified site; R54 Age-related physical debility; I25.10 Atherosclerotic heart disease of native coronary artery without angina pectoris; I27.21 Secondary pulmonary arterial hypertension; I35.0 Nonrheumatic aortic (valve) stenosis; I48.0 Paroxysmal atrial fibrillation; I49.1 Atrial premature depolarization; Z74.01 Bed confinement status; Z79.01 Long term (current) use of anticoagulants; Z79.4 Long term (current) use of insulin; Z79.899 Other long term (current) drug therapy; Z86.73 Personal history of transient ischemic attack (TIA), and cerebral infarction without residual deficits; Z68.37 Body mass index [BMI] 37.0-37.9, adult; Z79.82 Long term (current) use of aspirin; Z90.49 Acquired absence of other specified parts of digestive tract; Z71.3 Dietary counseling and surveillance
CPT/HCPCS: 36415; 36600; 71045; 76937; 80048; 81003; 82375; 82805; 82962; 83880; 84484; 85347; 87077; 87186; 92928; 92978; 93005; 93306; 93460; 94640; 94660; 99291; C1725; C1753; C1760; C1769; C1874; C1887; C1893; C9113; J0696; J1644; J1650; J1815; J1940; J2250; J2270; J3010; J3480; J3490; J7507; J7512; J7517; J7620; Q9967

== ENCOUNTER 2019-03-04 12:37 | Inpatient (IN) | payer MEDICARE, MEDICAID ==
[~2019-03-04] VITALS: Ht 142.2 cm; Wt 72.1 kg
[~2019-03-04 12:37] MED LIST changes: +AMIO100T4 PO; -AMLO10TA4 PO; +APIX5TAB MT; -DOCU-138 PO; +FURO20TA4 MT; +HYDR-4134 MT; -INSLAN SQ; -INSLIS SQ; +INSU100C6 SQ; -OMEP40CA34 PO; -PRED10TA PO; +PRED5TAB MT; -[UNRECOGNIZED DRUG - CODE] MT
[2019-03-04] MEDS ORDERED: ACETAMINOPHEN 325MG TABLET PO PRN (14:00)
[2019-03-04] MEDS ORDERED: ONDANSETRON HCL 4MG/2ML INJ IV PRN (14:00)
[2019-03-04] MEDS ORDERED: DEXTROSE 50% WATER 50ML SYRINGE IV PRN (14:00)
[2019-03-04 15:00] LABS: HEMATOCRIT. 35.4 % (36.0-48.0); HEMOGLOBIN. 11.6 g/dL (12.0-16.0); MEAN CORPUSCULAR HEMOGLOBIN 28.6 pg (28.0-32.0); MEAN CORPUSCULAR VOLUME 87.4 fL (81.0-99.0); MEAN PLATELET VOLUME 7.3 fl (7.4-10.4); PLATELET 294 x1000/uL (130-400); RED BLOOD CELL COUNT 4.05 mill/uL (4.2-5.4); RED CELL DISTRIBUTION WIDTH 19.9 % (11.6-14.6)
[2019-03-04 15:07] LABS: CHLORIDE 109 mEq/L (98-107); INR 1.1; PROTHROMBIN TIME 11.4 sec (9.6-11.0)
[2019-03-04 15:58] LABS: PLATELET ESTIMATE NORMAL
[2019-03-04] MEDS ORDERED: FUROSEMIDE 40MG/4ML VIAL IVP SCH (17:30)
[2019-03-04 21:28] VITALS: BP 145/43
[2019-03-04 21:30] VITALS: BP 145/43
[2019-03-04] MEDS ORDERED: MYCOPHENOLATE SODIUM 180 MG TABLET.DR PO SCH (22:30)
[2019-03-04] MEDS ORDERED: TACROLIMUS 1MG CAPSULE PO SCH (22:30)
[2019-03-04] MEDS: APIXABAN 5 MG TABLET PO SCH (22:35)
[2019-03-04] MEDS: IPRATROPIUM/ALBUTEROL 0.5-3(2.5)MG/3ML NEB HHN PRN (23:35)
[2019-03-05] VITALS: BP 146/38
[2019-03-05] MEDS ORDERED: PROT40 PO (00:12)
[2019-03-05] MEDS ORDERED: CLOP75TA4 PO (00:12)
[2019-03-05] MEDS ORDERED: AMLO10TA80 PO (00:12)
[2019-03-05] MEDS ORDERED: CYCL30DR EACHEYE (00:12)
[2019-03-05 04:00] VITALS: BP 150/40
[2019-03-05] MEDS: BLOOD SUGAR DIAGNOSTIC STRIP TEST SCH ×5 (07:11→20:56)
[2019-03-05] MEDS: MYCOPHENOLATE SODIUM 180 MG TABLET.DR PO SCH ×2 (07:11→17:37)
[2019-03-05] MEDS: TACROLIMUS 1MG CAPSULE PO SCH ×2 (07:11→17:37)
[2019-03-05 08:00] VITALS: BP 141/87
[2019-03-05] MEDS: APIXABAN 5 MG TABLET PO SCH ×2 (08:35→17:45)
[2019-03-05] MEDS: CLOPIDOGREL 75MG TABLET PO SCH (08:35)
[2019-03-05] MEDS: ASPIRIN 81MG TABLET PO SCH (08:35)
[2019-03-05] MEDS: GUAIFENESIN 600MG ER TABLET PO SCH ×2 (08:35→20:55)
[2019-03-05] MEDS: INSULIN LISPRO 100 UNITS/ML SUBCUT SCH ×5 (08:37→21:00)
[2019-03-05] MEDS: FUROSEMIDE 40MG/4ML VIAL IVP SCH ×2 (08:39→17:59)
[2019-03-05] MEDS: PREDNISONE 10MG TABLET PO SCH (08:46)
[2019-03-05] MEDS: IPRATROPIUM/ALBUTEROL 0.5-3(2.5)MG/3ML NEB HHN PRN (09:13)
[2019-03-05 12:00] VITALS: BP 145/35
[2019-03-05 16:00] VITALS: BP 141/78
[2019-03-05] MEDS ORDERED: TERI2.4P SQ (16:14)
[2019-03-05] MEDS ORDERED: DEXTROSE 50% WATER 50ML SYRINGE IV PRN (17:15)
[2019-03-05 18:05] LABS: HEMATOCRIT. 31.6 % (36.0-48.0); HEMOGLOBIN. 9.9 g/dL (12.0-16.0); MEAN CORPUSCULAR HEMOGLOBIN 27.8 pg (28.0-32.0); MEAN CORPUSCULAR VOLUME 88.4 fL (81.0-99.0); PLATELET 251 x1000/uL (130-400); RED BLOOD CELL COUNT 3.57 mill/uL (4.2-5.4); RED CELL DISTRIBUTION WIDTH 20.2 % (11.6-14.6)
[2019-03-05 18:32] LABS: PLATELET ESTIMATE NORMAL
[2019-03-05 20:00] VITALS: BP 138/63
[2019-03-05] MEDS: INSULIN GLARGINE UD 100 UNITS/ML SYR SUBCUT SCH (22:00)
[2019-03-05] MEDS ORDERED: INSULIN GLARGINE UD 100 UNITS/ML SYR SUBCUT SCH (22:00)
[2019-03-06 00:05] VITALS: BP 133/53
[2019-03-06 04:00] VITALS: BP 137/41
[2019-03-06] MEDS: TACROLIMUS 1MG CAPSULE PO SCH ×2 (05:27→17:43)
[2019-03-06] MEDS: MYCOPHENOLATE SODIUM 180 MG TABLET.DR PO SCH ×2 (05:28→17:43)
[2019-03-06] MEDS: BLOOD SUGAR DIAGNOSTIC STRIP TEST SCH ×4 (05:43→21:00)
[2019-03-06] MEDS: FUROSEMIDE 40MG/4ML VIAL IVP SCH (06:49)
[2019-03-06] MEDS: INSULIN LISPRO 100 UNITS/ML SUBCUT SCH ×4 (08:10→22:33)
[2019-03-06 08:27] VITALS: BP 152/34
[2019-03-06] MEDS: GUAIFENESIN 600MG ER TABLET PO SCH ×2 (09:09→22:32)
[2019-03-06] MEDS: CLOPIDOGREL 75MG TABLET PO SCH (09:10)
[2019-03-06] MEDS: APIXABAN 5 MG TABLET PO SCH ×2 (09:10→17:43)
[2019-03-06] MEDS: PREDNISONE 10MG TABLET PO SCH (09:10)
[2019-03-06] MEDS: ASPIRIN 81MG TABLET PO SCH (09:10)
[2019-03-06 11:12] LABS: HEMATOCRIT. 31.2 % (36.0-48.0); HEMOGLOBIN. 10.1 g/dL (12.0-16.0); MEAN CORPUSCULAR HEMOGLOBIN 28.3 pg (28.0-32.0); MEAN CORPUSCULAR VOLUME 87.1 fL (81.0-99.0); PLATELET 265 x1000/uL (130-400); RED BLOOD CELL COUNT 3.58 mill/uL (4.2-5.4); RED CELL DISTRIBUTION WIDTH 19.7 % (11.6-14.6)
[2019-03-06 12:51] VITALS: BP 139/41
[2019-03-06 13:31] LABS: PLATELET ESTIMATE NORMAL
[2019-03-06 16:13] VITALS: BP 131/33
[2019-03-06 20:42] VITALS: BP 139/73
[2019-03-06] MEDS: INSULIN GLARGINE UD 100 UNITS/ML SYR SUBCUT SCH (22:33)
[2019-03-07 00:14] VITALS: BP 141/50
[2019-03-07 04:00] VITALS: BP 155/52
[2019-03-07] MEDS: TACROLIMUS 1MG CAPSULE PO SCH ×2 (06:50→17:46)
[2019-03-07] MEDS: MYCOPHENOLATE SODIUM 180 MG TABLET.DR PO SCH ×2 (06:50→17:46)
[2019-03-07 06:51] LABS: BASOPHILS % 0.4 % (0.0-2.0); EOSINOPHILS % 1.8 % (0.0-5.0); HEMATOCRIT. 29.7 % (36.0-48.0); HEMOGLOBIN. 9.6 g/dL (12.0-16.0); MEAN CORPUSCULAR HEMOGLOBIN 27.9 pg (28.0-32.0); MEAN CORPUSCULAR VOLUME 86.4 fL (81.0-99.0); MONOCYTES % 12.9 % (2.0-8.0); NEUTROPHILS % 75.9 % (40.0-76.0); PLATELET 260 x1000/uL (130-400); RED BLOOD CELL COUNT 3.44 mill/uL (4.2-5.4); RED CELL DISTRIBUTION WIDTH 19.4 % (11.6-14.6)
[2019-03-07] MEDS: BLOOD SUGAR DIAGNOSTIC STRIP TEST SCH ×4 (07:40→21:46)
[2019-03-07 08:00] VITALS: BP 161/48
[2019-03-07] MEDS: PREDNISONE 10MG TABLET PO SCH (08:51)
[2019-03-07] MEDS: ASPIRIN 81MG TABLET PO SCH (08:51)
[2019-03-07] MEDS: GUAIFENESIN 600MG ER TABLET PO SCH ×2 (08:51→21:44)
[2019-03-07] MEDS: APIXABAN 5 MG TABLET PO SCH ×2 (08:51→17:45)
[2019-03-07] MEDS: CLOPIDOGREL 75MG TABLET PO SCH (08:51)
[2019-03-07] MEDS: INSULIN LISPRO 100 UNITS/ML SUBCUT SCH ×4 (08:59→21:45)
[2019-03-07] MEDS: FUROSEMIDE 100MG/10ML VIAL IVP SCH ×2 (09:07→17:54)
[2019-03-07 12:00] VITALS: BP 150/52
[2019-03-07] MEDS: SOTALOL HCL 80MG TABLET PO SCH ×2 (15:39→21:46)
[2019-03-07 16:06] VITALS: BP 165/45
[2019-03-07 20:00] VITALS: BP 152/72
[2019-03-07] MEDS: INSULIN GLARGINE UD 100 UNITS/ML SYR SUBCUT SCH (21:46)
[2019-03-08] VITALS: BP 139/45
[2019-03-08] MEDS: TACROLIMUS 1MG CAPSULE PO SCH (05:18)
[2019-03-08] MEDS: MYCOPHENOLATE SODIUM 180 MG TABLET.DR PO SCH (05:18)
[2019-03-08 07:23] LABS: EOSINOPHILS % 2.1 % (0.0-5.0); HEMATOCRIT. 30.2 % (36.0-48.0); HEMOGLOBIN. 9.7 g/dL (12.0-16.0); MEAN CORPUSCULAR HEMOGLOBIN 28.1 pg (28.0-32.0); MEAN CORPUSCULAR VOLUME 87.7 fL (81.0-99.0); MEAN PLATELET VOLUME 7.6 fl (7.4-10.4); MONOCYTES % 11.2 % (2.0-8.0); NEUTROPHILS % 72.7 % (40.0-76.0); PLATELET 293 x1000/uL (130-400); RED BLOOD CELL COUNT 3.45 mill/uL (4.2-5.4)
[2019-03-08 08:00] VITALS: BP 169/48
[2019-03-08] MEDS: INSULIN LISPRO 100 UNITS/ML SUBCUT SCH ×2 (08:10→13:49)
[2019-03-08] MEDS: BLOOD SUGAR DIAGNOSTIC STRIP TEST SCH ×2 (08:25→13:35)
[2019-03-08] MEDS: FUROSEMIDE 100MG/10ML VIAL IVP SCH (09:08)
[2019-03-08] MEDS: PREDNISONE 10MG TABLET PO SCH (09:09)
[2019-03-08] MEDS: SOTALOL HCL 80MG TABLET PO SCH (09:09)
[2019-03-08] MEDS: CLOPIDOGREL 75MG TABLET PO SCH (09:10)
[2019-03-08] MEDS: ASPIRIN 81MG TABLET PO SCH (09:10)
[2019-03-08] MEDS: GUAIFENESIN 600MG ER TABLET PO SCH (09:10)
[2019-03-08] MEDS: APIXABAN 5 MG TABLET PO SCH (09:10)
[2019-03-08] MEDS ORDERED: FURO-151 MT (10:51)
[2019-03-08 11:49] VITALS: BP 158/83
[2019-03-08 12:39] VITALS: BP 158/83
[2019-03-08] MEDS ORDERED: FUROSEMIDE 40MG TABLET PO SCH (21:00)
[2019-03-22] MEDS ORDERED: ALLO100T57 MT (23:02)
[2019-04-03] MEDS ORDERED: FURO80TA87 MT (16:32)
[2019-04-03] MEDS ORDERED: POTA20TA82 MT (16:32)
[2019-04-03] MEDS ORDERED: ASPI-1393 MT (16:33)
== END 2019-03-08 15:49 | disposition home health service (06) | DRG 291 ==
LOC: ER 12:37 → 7WST 16:01 → EDBEDREQTM 16:20 → EDBEDREQ 16:20 → ENRESERV 20:01
PROVIDERS: ADMIT Internal Medicine Nephrology; ATTEND Internal Medicine Nephrology
DX: I13.0 Hypertensive heart and chronic kidney disease with heart failure and stage 1 through stage 4 chronic kidney disease, or unspecified chronic kidney disease (principal); I50.43 Acute on chronic combined systolic (congestive) and diastolic (congestive) heart failure; J96.01 Acute respiratory failure with hypoxia; J18.9 Pneumonia, unspecified organism; Z94.0 Kidney transplant status; D63.8 Anemia in other chronic diseases classified elsewhere; E11.22 Type 2 diabetes mellitus with diabetic chronic kidney disease; E78.5 Hyperlipidemia, unspecified; G47.33 Obstructive sleep apnea (adult) (pediatric); G62.9 Polyneuropathy, unspecified; I25.10 Atherosclerotic heart disease of native coronary artery without angina pectoris; I27.20 Pulmonary hypertension, unspecified; I35.0 Nonrheumatic aortic (valve) stenosis; M19.90 Unspecified osteoarthritis, unspecified site; I48.0 Paroxysmal atrial fibrillation; R26.9 Unspecified abnormalities of gait and mobility; Z95.5 Presence of coronary angioplasty implant and graft; N18.3 Chronic kidney disease, stage 3 (moderate); E78.00 Pure hypercholesterolemia, unspecified; Z79.01 Long term (current) use of anticoagulants; Z79.02 Long term (current) use of antithrombotics/antiplatelets; Z79.4 Long term (current) use of insulin; Z79.82 Long term (current) use of aspirin; Z79.899 Other long term (current) drug therapy; Z99.2 Dependence on renal dialysis; Z90.49 Acquired absence of other specified parts of digestive tract; S80.11XA Contusion of right lower leg, initial encounter
CPT/HCPCS: 36415; 71045; 80048; 80076; 82962; 83880; 84134; 84145; 84484; 93005; 93923; 93970; 94640; 97161; 97166; 99285; J1815; J1940; J7507; J7512; J7517; J7620

== ENCOUNTER 2019-04-16 17:40 | Inpatient (IN) | payer MEDICARE, MEDICAID ==
[~2019-04-16] VITALS: Ht 134.6 cm; Wt 60.9 kg
[~2019-04-16 17:40] MED LIST changes: +ALLO100T57 MT; -AMIO100T4 PO; +AMLO10TA80 PO; +ASPI-1393 MT; -ASPI-1393 PO; -ATOR20TA PO; +CLOP75TA4 PO; +CYCL30DR EACHEYE; -FURO20TA4 MT; +FURO80TA87 MT; -KETO5DRO80 EACHEYE; +POTA20TA82 MT; +PROT40 PO; +TERI2.4P SQ
[2019-04-16 18:00] VITALS: BP_SYST 157; BP_SYST 163; BP_DIAS 68; BP_DIAS 74
[2019-04-16 20:00] VITALS: BP 123/48
[2019-04-16] MEDS ORDERED: ONDANSETRON HCL 4MG/2ML INJ IV PRN (20:30)
[2019-04-16] MEDS ORDERED: ACETAMINOPHEN 325MG TABLET PO PRN (20:30)
[2019-04-16] MEDS ORDERED: DIPHENHYDRAMINE HCL/ZINC ACET 28 GM CREAM TOP PRN (20:30)
[2019-04-16] MEDS ORDERED: DEXTROSE 50% WATER 50ML SYRINGE IV PRN (20:30)
[2019-04-16] MEDS ORDERED: CLONIDINE 0.1MG TABLET PO PRN (20:30)
[2019-04-16] MEDS ORDERED: IPRATROPIUM/ALBUTEROL 0.5-3(2.5)MG/3ML NEB HHN PRN (20:30)
[2019-04-16] MEDS ORDERED: GUAIFENESIN 200MG/10ML SUGAR FREE UDC PO PRN (20:30)
[2019-04-16] MEDS: BLOOD SUGAR DIAGNOSTIC STRIP TEST SCH (21:00)
[2019-04-16 22:00] VITALS: BP 127/41
[2019-04-16] MEDS: HYDRALAZINE HCL 25MG TABLET PO SCH (22:31)
[2019-04-16] MEDS: FUROSEMIDE 40MG TABLET PO SCH (22:31)
[2019-04-16] MEDS: INSULIN LISPRO 100 UNITS/ML SUBCUT SCH (22:32)
[2019-04-16] MEDS: INSULIN GLARGINE UD 100 UNITS/ML SYR SUBCUT SCH (22:33)
[2019-04-16] MEDS: NITROGLYCERIN OINT 1GM/INCH UDPKT TD SCH (22:33)
[2019-04-17] VITALS (12 sets, daily range): BP systolic 91–150; BP diastolic 30–55
[2019-04-17] MEDS: IPRATROPIUM/ALBUTEROL 0.5-3(2.5)MG/3ML NEB HHN SCH ×4 (02:45→21:08)
[2019-04-17] MEDS: POLYVINYL ALCOHOL OPHTH DROPS 15ML EACHEYE SCH ×5 (02:49→23:46)
[2019-04-17] MEDS: TACROLIMUS 1MG CAPSULE PO SCH ×2 (06:42→17:00)
[2019-04-17] MEDS: MYCOPHENOLATE SODIUM 180 MG TABLET.DR PO SCH ×2 (06:42→17:00)
[2019-04-17] MEDS: NITROGLYCERIN OINT 1GM/INCH UDPKT TD SCH (06:42)
[2019-04-17] MEDS: BLOOD SUGAR DIAGNOSTIC STRIP TEST SCH ×4 (07:30→21:00)
[2019-04-17] MEDS: INSULIN LISPRO 100 UNITS/ML SUBCUT SCH ×4 (08:00→21:00)
[2019-04-17] MEDS: KETOROLAC TROMETHAMINE 0.4% OPHTH 5ML EACHEYE SCH ×2 (08:45→17:00)
[2019-04-17] MEDS: HYDRALAZINE HCL 25MG TABLET PO SCH (08:46)
[2019-04-17] MEDS: APIXABAN 2.5 MG TABLET PO SCH ×2 (08:46→17:00)
[2019-04-17] MEDS: FAMOTIDINE 20MG TABLET PO SCH (08:46)
[2019-04-17] MEDS: ALLOPURINOL 100 MG TABLET PO SCH (08:47)
[2019-04-17] MEDS: FUROSEMIDE 40MG TABLET PO SCH (08:47)
[2019-04-17] MEDS: AMLODIPINE 10MG TABLET PO SCH ×2 (08:48→08:57)
[2019-04-17] MEDS: CITALOPRAM HYDROBROMIDE 10MG TABLET PO SCH (08:50)
[2019-04-17] MEDS: CHOLECALCIFEROL (D3) 1000 UNIT TABLET PO SCH (08:50)
[2019-04-17] MEDS: POTASSIUM CHLORIDE 20MEQ/PACKET PO SCH (08:51)
[2019-04-17] MEDS: CLOPIDOGREL 75MG TABLET PO SCH (08:51)
[2019-04-17] MEDS: FUROSEMIDE 40MG/4ML VIAL IVP SCH ×2 (11:04→17:06)
[2019-04-17] MEDS: INSULIN GLARGINE UD 100 UNITS/ML SYR SUBCUT SCH ×2 (11:07→22:00)
[2019-04-17] MEDS ORDERED: METOLAZONE 2.5MG TABLET PO SCH (12:30)
[2019-04-17 13:24] LABS: BASOPHILS % 1.7 % (0.0-2.0); EOSINOPHILS % 5.1 % (0.0-5.0); HEMATOCRIT. 24.7 % (36.0-48.0); HEMOGLOBIN. 7.9 g/dL (12.0-16.0); LYMPHOCYTES % 12.3 % (20.0-50.0); MEAN CORPUSCULAR HEMOGLOBIN 25.3 pg (28.0-32.0); MEAN CORPUSCULAR VOLUME 79.3 fL (81.0-99.0); MEAN PLATELET VOLUME 7.5 fl (7.4-10.4); MONOCYTES % 12.7 % (2.0-8.0); NEUTROPHILS % 68.2 % (40.0-76.0); PLATELET 237 x1000/uL (130-400); RED BLOOD CELL COUNT 3.12 mill/uL (4.2-5.4); RED CELL DISTRIBUTION WIDTH 18.2 % (11.6-14.6)
[2019-04-17 13:30] LABS: CHLORIDE 104 mEq/L (98-107)
[2019-04-17 14:29] LABS: HEPATITIS B SURFACE AB 14.3 mIU/mL
[2019-04-17 14:40] LABS: HEPATITIS B SURFACE ANTIGEN NEGATIVE
[2019-04-17 15:32] LABS: HEPATITIS B SURFACE ANTIGEN NEGATIVE
[2019-04-17 19:04] LABS: CLARITY URINE CLEAR (CLEAR); COLOR URINE YELLOW (YELLOW); KETONES URINE NEGATIVE (NEGATIVE); LEUKOCYTE ESTERASE URINE TRACE (NEGATIVE); NITRITE URINE NEGATIVE (NEGATIVE); OCCULT BLOOD URINE NEGATIVE (NEGATIVE); PH URINE 5.5 (4.5-8.0); PROTEIN URINE NEGATIVE (NEGATIVE); SPECIFIC GRAVITY URINE 1.007 (1.005-1.030); UROBILINOGEN URINE 0.2 E.U./dL (0.2-1.0)
[2019-04-18] VITALS (12 sets, daily range): BP systolic 56–159; BP diastolic 26–66
[2019-04-18] MEDS: IPRATROPIUM/ALBUTEROL 0.5-3(2.5)MG/3ML NEB HHN SCH ×4 (02:37→21:09)
[2019-04-18] MEDS: MYCOPHENOLATE SODIUM 180 MG TABLET.DR PO SCH ×2 (06:52→17:16)
[2019-04-18] MEDS: TACROLIMUS 1MG CAPSULE PO SCH ×2 (06:52→17:16)
[2019-04-18] MEDS: POLYVINYL ALCOHOL OPHTH DROPS 15ML EACHEYE SCH ×3 (06:53→17:17)
[2019-04-18] MEDS: BLOOD SUGAR DIAGNOSTIC STRIP TEST SCH ×4 (07:43→21:00)
[2019-04-18] MEDS: INSULIN LISPRO 100 UNITS/ML SUBCUT SCH ×4 (08:00→22:10)
[2019-04-18 08:23] LABS: HEMATOCRIT. 26.5 % (36.0-48.0); HEMOGLOBIN. 8.3 g/dL (12.0-16.0); MEAN CORPUSCULAR HEMOGLOBIN 24.7 pg (28.0-32.0); MEAN PLATELET VOLUME 7.3 fl (7.4-10.4); PLATELET 258 x1000/uL (130-400); RED BLOOD CELL COUNT 3.36 mill/uL (4.2-5.4); RED CELL DISTRIBUTION WIDTH 18.5 % (11.6-14.6)
[2019-04-18] MEDS ORDERED: POTASSIUM CHLORIDE 20MEQ TABLET SR PO NR (08:45)
[2019-04-18] MEDS: POTASSIUM CHLORIDE 20MEQ/PACKET PO SCH (09:10)
[2019-04-18] MEDS: CITALOPRAM HYDROBROMIDE 10MG TABLET PO SCH (09:10)
[2019-04-18] MEDS: FUROSEMIDE 40MG/4ML VIAL IVP SCH ×2 (09:10→17:16)
[2019-04-18] MEDS: AMLODIPINE 10MG TABLET PO SCH (09:11)
[2019-04-18] MEDS: APIXABAN 2.5 MG TABLET PO SCH ×2 (09:11→17:16)
[2019-04-18] MEDS: CHOLECALCIFEROL (D3) 1000 UNIT TABLET PO SCH (09:11)
[2019-04-18] MEDS: FAMOTIDINE 20MG TABLET PO SCH (09:11)
[2019-04-18] MEDS: ALLOPURINOL 100 MG TABLET PO SCH (09:11)
[2019-04-18] MEDS: KETOROLAC TROMETHAMINE 0.4% OPHTH 5ML EACHEYE SCH ×2 (09:13→17:17)
[2019-04-18] MEDS: CLOPIDOGREL 75MG TABLET PO SCH (09:26)
[2019-04-18] MEDS: INSULIN GLARGINE UD 100 UNITS/ML SYR SUBCUT SCH ×2 (11:02→22:11)
[2019-04-18 13:27] LABS: PLATELET ESTIMATE NORMAL
[2019-04-19] VITALS (12 sets, daily range): BP systolic 90–155; BP diastolic 24–72
[2019-04-19] MEDS: POLYVINYL ALCOHOL OPHTH DROPS 15ML EACHEYE SCH ×4 (00:02→18:47)
[2019-04-19] MEDS: IPRATROPIUM/ALBUTEROL 0.5-3(2.5)MG/3ML NEB HHN SCH ×4 (01:30→20:01)
[2019-04-19] MEDS: MYCOPHENOLATE SODIUM 180 MG TABLET.DR PO SCH ×2 (06:48→17:26)
[2019-04-19] MEDS: TACROLIMUS 1MG CAPSULE PO SCH ×2 (06:48→17:26)
[2019-04-19] MEDS: BLOOD SUGAR DIAGNOSTIC STRIP TEST SCH ×4 (07:56→21:00)
[2019-04-19] MEDS: INSULIN LISPRO 100 UNITS/ML SUBCUT SCH ×4 (08:00→21:56)
[2019-04-19] MEDS: CITALOPRAM HYDROBROMIDE 10MG TABLET PO SCH (08:45)
[2019-04-19] MEDS: KETOROLAC TROMETHAMINE 0.4% OPHTH 5ML EACHEYE SCH ×2 (08:45→17:25)
[2019-04-19] MEDS: FAMOTIDINE 20MG TABLET PO SCH (08:45)
[2019-04-19] MEDS: ALLOPURINOL 100 MG TABLET PO SCH (08:45)
[2019-04-19] MEDS: CLOPIDOGREL 75MG TABLET PO SCH (08:45)
[2019-04-19] MEDS: APIXABAN 2.5 MG TABLET PO SCH ×2 (08:45→17:26)
[2019-04-19] MEDS: POTASSIUM CHLORIDE 20MEQ/PACKET PO SCH (08:46)
[2019-04-19] MEDS: FUROSEMIDE 40MG/4ML VIAL IVP SCH ×2 (08:46→17:26)
[2019-04-19] MEDS ORDERED: ERGOCALCIFEROL 50000UNITS CAPSULE PO SCH (09:00)
[2019-04-19] MEDS: CHOLECALCIFEROL (D3) 1000 UNIT TABLET PO SCH (09:00)
[2019-04-19] MEDS: AMLODIPINE 10MG TABLET PO SCH (10:10)
[2019-04-19] MEDS: INSULIN GLARGINE UD 100 UNITS/ML SYR SUBCUT SCH ×2 (10:11→21:57)
[2019-04-19 11:17] LABS: HEMATOCRIT. 25.9 % (36.0-48.0); HEMOGLOBIN. 8.2 g/dL (12.0-16.0); MEAN CORPUSCULAR HEMOGLOBIN 25.2 pg (28.0-32.0); MEAN CORPUSCULAR VOLUME 79.1 fL (81.0-99.0); MEAN PLATELET VOLUME 7.5 fl (7.4-10.4); PLATELET 220 x1000/uL (130-400); RED BLOOD CELL COUNT 3.27 mill/uL (4.2-5.4); RED CELL DISTRIBUTION WIDTH 18.2 % (11.6-14.6)
[2019-04-19 13:45] LABS: PLATELET ESTIMATE NORMAL
[2019-04-20] VITALS (12 sets, daily range): BP systolic 90–161; BP diastolic 27–77
[2019-04-20] MEDS: IPRATROPIUM/ALBUTEROL 0.5-3(2.5)MG/3ML NEB HHN SCH ×4 (01:46→20:44)
[2019-04-20] MEDS: POLYVINYL ALCOHOL OPHTH DROPS 15ML EACHEYE SCH ×5 (06:18→23:45)
[2019-04-20 07:08] LABS: HIV SCREEN 4G Non Reactive (Non Reactive)
[2019-04-20] MEDS: INSULIN LISPRO 100 UNITS/ML SUBCUT SCH ×4 (08:00→22:49)
[2019-04-20] MEDS: BLOOD SUGAR DIAGNOSTIC STRIP TEST SCH ×4 (08:12→21:30)
[2019-04-20] MEDS: KETOROLAC TROMETHAMINE 0.4% OPHTH 5ML EACHEYE SCH ×2 (08:23→17:20)
[2019-04-20] MEDS: MYCOPHENOLATE SODIUM 180 MG TABLET.DR PO SCH ×2 (08:23→17:19)
[2019-04-20] MEDS: ALLOPURINOL 100 MG TABLET PO SCH (08:23)
[2019-04-20] MEDS: FUROSEMIDE 40MG/4ML VIAL IVP SCH ×2 (08:23→17:20)
[2019-04-20] MEDS: FAMOTIDINE 20MG TABLET PO SCH (08:23)
[2019-04-20] MEDS: CHOLECALCIFEROL (D3) 1000 UNIT TABLET PO SCH (08:23)
[2019-04-20] MEDS: POTASSIUM CHLORIDE 20MEQ/PACKET PO SCH (08:23)
[2019-04-20] MEDS: TACROLIMUS 1MG CAPSULE PO SCH ×2 (08:24→17:20)
[2019-04-20] MEDS: CLOPIDOGREL 75MG TABLET PO SCH (08:24)
[2019-04-20] MEDS: APIXABAN 2.5 MG TABLET PO SCH ×2 (08:24→17:20)
[2019-04-20] MEDS: CITALOPRAM HYDROBROMIDE 10MG TABLET PO SCH (08:24)
[2019-04-20] MEDS: AMLODIPINE 10MG TABLET PO SCH (08:24)
[2019-04-20 11:16] LABS: BASOPHILS % 1.4 % (0.0-2.0); EOSINOPHILS % 10.3 % (0.0-5.0); HEMATOCRIT. 26.4 % (36.0-48.0); HEMOGLOBIN. 8.4 g/dL (12.0-16.0); LYMPHOCYTES % 17.2 % (20.0-50.0); MEAN CORPUSCULAR HEMOGLOBIN 25.2 pg (28.0-32.0); MEAN CORPUSCULAR VOLUME 78.8 fL (81.0-99.0); MEAN PLATELET VOLUME 7.5 fl (7.4-10.4); MONOCYTES % 13.6 % (2.0-8.0); NEUTROPHILS % 57.5 % (40.0-76.0); PLATELET 226 x1000/uL (130-400); RED BLOOD CELL COUNT 3.35 mill/uL (4.2-5.4); RED CELL DISTRIBUTION WIDTH 18.1 % (11.6-14.6)
[2019-04-20] MEDS: INSULIN GLARGINE UD 100 UNITS/ML SYR SUBCUT SCH ×2 (11:34→22:48)
[2019-04-21] VITALS (9 sets, daily range): BP systolic 104–137; BP diastolic 27–59
[2019-04-21] MEDS: IPRATROPIUM/ALBUTEROL 0.5-3(2.5)MG/3ML NEB HHN SCH ×4 (01:08→20:13)
[2019-04-21] MEDS: POLYVINYL ALCOHOL OPHTH DROPS 15ML EACHEYE SCH ×3 (05:13→17:43)
[2019-04-21] MEDS: BLOOD SUGAR DIAGNOSTIC STRIP TEST SCH ×4 (07:50→21:46)
[2019-04-21] MEDS: TACROLIMUS 1MG CAPSULE PO SCH ×2 (07:50→17:43)
[2019-04-21] MEDS: MYCOPHENOLATE SODIUM 180 MG TABLET.DR PO SCH ×2 (07:50→17:43)
[2019-04-21] MEDS: INSULIN LISPRO 100 UNITS/ML SUBCUT SCH ×4 (07:51→21:46)
[2019-04-21] MEDS: FUROSEMIDE 40MG/4ML VIAL IVP SCH ×2 (08:55→17:43)
[2019-04-21] MEDS: ALLOPURINOL 100 MG TABLET PO SCH (08:56)
[2019-04-21] MEDS: APIXABAN 2.5 MG TABLET PO SCH ×2 (08:56→17:43)
[2019-04-21] MEDS: AMLODIPINE 10MG TABLET PO SCH (08:56)
[2019-04-21] MEDS: POTASSIUM CHLORIDE 20MEQ/PACKET PO SCH (08:56)
[2019-04-21] MEDS: CHOLECALCIFEROL (D3) 1000 UNIT TABLET PO SCH (08:56)
[2019-04-21] MEDS: FOLIC ACID/VITAMIN B COMP W-C TABLET PO SCH (08:56)
[2019-04-21] MEDS: FAMOTIDINE 20MG TABLET PO SCH (08:57)
[2019-04-21] MEDS: CITALOPRAM HYDROBROMIDE 10MG TABLET PO SCH (08:57)
[2019-04-21] MEDS: KETOROLAC TROMETHAMINE 0.4% OPHTH 5ML EACHEYE SCH ×2 (08:57→17:42)
[2019-04-21] MEDS: CLOPIDOGREL 75MG TABLET PO SCH (09:03)
[2019-04-21] MEDS: INSULIN GLARGINE UD 100 UNITS/ML SYR SUBCUT SCH ×2 (09:04→21:46)
[2019-04-21 10:21] LABS: BG BASE EXCESS 5.7 mmol/L (-2.0-2.0); BG CARBOXYHEMOGLOBIN 0.4 % (0.5-1.5); BG FRACTION INSPIRED OXYGEN 28; BG METHEMOGLOBIN 0.2 % (0.0-1.5); BG OXYHEMOGLOBIN 95.4 % (94.0-97.0); BG PCO2 49.3 mmHg (35.0-45.0); BG PH 7.417 (7.350-7.450); BG PO2 86.2 mmHg (75.0-100.0); BG SAMPLE SITE RIGHT BRACHIAL; BG TOTAL HEMOGLOBIN 9.2 g/dL (12.0-18.0); BG VENT MODE NASAL CANNULA
[2019-04-22] VITALS (12 sets, daily range): BP systolic 110–146; BP diastolic 30–52
[2019-04-22] MEDS: POLYVINYL ALCOHOL OPHTH DROPS 15ML EACHEYE SCH ×5 (00:18→23:40)
[2019-04-22] MEDS: IPRATROPIUM/ALBUTEROL 0.5-3(2.5)MG/3ML NEB HHN SCH ×4 (01:10→20:56)
[2019-04-22] MEDS: TACROLIMUS 1MG CAPSULE PO SCH ×2 (06:41→16:58)
[2019-04-22] MEDS: MYCOPHENOLATE SODIUM 180 MG TABLET.DR PO SCH ×2 (06:41→17:03)
[2019-04-22 07:33] LABS: HEMATOCRIT. 25.3 % (36.0-48.0); MEAN CORPUSCULAR HEMOGLOBIN 24.8 pg (28.0-32.0); MEAN CORPUSCULAR VOLUME 78.6 fL (81.0-99.0); MEAN PLATELET VOLUME 7.4 fl (7.4-10.4); PLATELET 206 x1000/uL (130-400); RED BLOOD CELL COUNT 3.22 mill/uL (4.2-5.4); RED CELL DISTRIBUTION WIDTH 18.9 % (11.6-14.6)
[2019-04-22] MEDS: BLOOD SUGAR DIAGNOSTIC STRIP TEST SCH ×4 (07:48→21:00)
[2019-04-22] MEDS: INSULIN LISPRO 100 UNITS/ML SUBCUT SCH ×4 (07:48→21:00)
[2019-04-22] MEDS: AMLODIPINE 10MG TABLET PO SCH (09:00)
[2019-04-22] MEDS: FAMOTIDINE 20MG TABLET PO SCH (09:13)
[2019-04-22] MEDS: CLOPIDOGREL 75MG TABLET PO SCH (09:13)
[2019-04-22] MEDS: FUROSEMIDE 40MG/4ML VIAL IVP SCH ×2 (09:13→16:58)
[2019-04-22] MEDS: APIXABAN 2.5 MG TABLET PO SCH ×2 (09:13→16:58)
[2019-04-22] MEDS: CITALOPRAM HYDROBROMIDE 10MG TABLET PO SCH (09:13)
[2019-04-22] MEDS: POTASSIUM CHLORIDE 20MEQ/PACKET PO SCH (09:13)
[2019-04-22] MEDS: FOLIC ACID/VITAMIN B COMP W-C TABLET PO SCH (09:14)
[2019-04-22] MEDS: CHOLECALCIFEROL (D3) 1000 UNIT TABLET PO SCH ×2 (09:14→16:58)
[2019-04-22] MEDS: ALLOPURINOL 100 MG TABLET PO SCH (09:14)
[2019-04-22] MEDS: KETOROLAC TROMETHAMINE 0.4% OPHTH 5ML EACHEYE SCH ×2 (09:15→16:58)
[2019-04-22] MEDS: INSULIN GLARGINE UD 100 UNITS/ML SYR SUBCUT SCH ×2 (10:18→22:00)
[2019-04-22 16:16] LABS: PLATELET ESTIMATE NORMAL
[2019-04-23] VITALS (12 sets, daily range): BP systolic 66–136; BP diastolic 30–70
[2019-04-23] MEDS: IPRATROPIUM/ALBUTEROL 0.5-3(2.5)MG/3ML NEB HHN SCH ×4 (00:28→18:00)
[2019-04-23] MEDS: TACROLIMUS 1MG CAPSULE PO SCH ×2 (06:54→17:11)
[2019-04-23] MEDS: POLYVINYL ALCOHOL OPHTH DROPS 15ML EACHEYE SCH ×3 (06:54→17:12)
[2019-04-23] MEDS: MYCOPHENOLATE SODIUM 180 MG TABLET.DR PO SCH ×2 (06:54→17:11)
[2019-04-23] MEDS: BLOOD SUGAR DIAGNOSTIC STRIP TEST SCH ×4 (07:40→21:00)
[2019-04-23] MEDS: INSULIN LISPRO 100 UNITS/ML SUBCUT SCH ×4 (07:40→22:14)
[2019-04-23 07:57] LABS: HEMATOCRIT. 25.3 % (36.0-48.0); HEMOGLOBIN. 8.3 g/dL (12.0-16.0); MEAN CORPUSCULAR HEMOGLOBIN 25.5 pg (28.0-32.0); MEAN PLATELET VOLUME 7.5 fl (7.4-10.4); PLATELET 205 x1000/uL (130-400); RED BLOOD CELL COUNT 3.24 mill/uL (4.2-5.4); RED CELL DISTRIBUTION WIDTH 18.8 % (11.6-14.6)
[2019-04-23] MEDS: AMLODIPINE 10MG TABLET PO SCH (09:00)
[2019-04-23] MEDS: INSULIN GLARGINE UD 100 UNITS/ML SYR SUBCUT SCH ×2 (09:17→22:15)
[2019-04-23] MEDS: KETOROLAC TROMETHAMINE 0.4% OPHTH 5ML EACHEYE SCH ×2 (09:18→17:12)
[2019-04-23] MEDS: POTASSIUM CHLORIDE 20MEQ/PACKET PO SCH (09:18)
[2019-04-23] MEDS: FOLIC ACID/VITAMIN B COMP W-C TABLET PO SCH (09:18)
[2019-04-23] MEDS: APIXABAN 2.5 MG TABLET PO SCH ×2 (09:19→17:11)
[2019-04-23] MEDS: CLOPIDOGREL 75MG TABLET PO SCH (09:19)
[2019-04-23] MEDS: CHOLECALCIFEROL (D3) 1000 UNIT TABLET PO SCH (09:19)
[2019-04-23] MEDS: ALLOPURINOL 100 MG TABLET PO SCH (09:19)
[2019-04-23] MEDS: FAMOTIDINE 20MG TABLET PO SCH (09:19)
[2019-04-23] MEDS: CITALOPRAM HYDROBROMIDE 10MG TABLET PO SCH (09:19)
[2019-04-23] MEDS: FUROSEMIDE 40MG/4ML VIAL IVP SCH ×2 (09:19→17:11)
[2019-04-23 20:03] LABS: NUCLEATED RED BLOOD CELLS 1 /100 WBC
[2019-04-23 20:04] LABS: PLATELET ESTIMATE NORMAL
[2019-04-23 22:35] LABS: BG CARBOXYHEMOGLOBIN 0.7 % (0.5-1.5); BG DEOXYHEMOGLOBIN 5.3 % (0.0-5.0); BG FRACTION INSPIRED OXYGEN 28; BG HCO3 ACT 30.6 mmol/L (22.0-26.0); BG METHEMOGLOBIN 0.4 % (0.0-1.5); BG OXYGEN SATURATION 94.6 % (92.0-98.5); BG OXYHEMOGLOBIN 93.6 % (94.0-97.0); BG PCO2 45.3 mmHg (35.0-45.0); BG PH 7.448 (7.350-7.450); BG PO2 73.7 mmHg (75.0-100.0); BG SAMPLE SITE RIGHT RADIAL; BG TOTAL HEMOGLOBIN 8.6 g/dL (12.0-18.0); BG VENT MODE NASAL CANNULA
[2019-04-24] VITALS (14 sets, daily range): BP systolic 92–176; BP diastolic 29–89
[2019-04-24] MEDS: POLYVINYL ALCOHOL OPHTH DROPS 15ML EACHEYE SCH ×4 (00:46→17:16)
[2019-04-24] MEDS: IPRATROPIUM/ALBUTEROL 0.5-3(2.5)MG/3ML NEB HHN SCH ×4 (02:58→20:15)
[2019-04-24] MEDS: TACROLIMUS 1MG CAPSULE PO SCH ×2 (06:53→17:17)
[2019-04-24] MEDS: MYCOPHENOLATE SODIUM 180 MG TABLET.DR PO SCH ×2 (06:53→17:17)
[2019-04-24 07:29] LABS: BASOPHILS % 0.9 % (0.0-2.0); EOSINOPHILS % 6.7 % (0.0-5.0); HEMATOCRIT. 25.2 % (36.0-48.0); LYMPHOCYTES % 9.5 % (20.0-50.0); MEAN CORPUSCULAR HEMOGLOBIN 24.5 pg (28.0-32.0); MEAN CORPUSCULAR VOLUME 77.5 fL (81.0-99.0); MEAN PLATELET VOLUME 7.5 fl (7.4-10.4); MONOCYTES % 10.7 % (2.0-8.0); NEUTROPHILS % 72.2 % (40.0-76.0); PLATELET 200 x1000/uL (130-400); RED BLOOD CELL COUNT 3.26 mill/uL (4.2-5.4); RED CELL DISTRIBUTION WIDTH 18.8 % (11.6-14.6)
[2019-04-24] MEDS: BLOOD SUGAR DIAGNOSTIC STRIP TEST SCH ×4 (07:42→21:00)
[2019-04-24] MEDS: INSULIN LISPRO 100 UNITS/ML SUBCUT SCH ×4 (07:42→21:00)
[2019-04-24] MEDS: FOLIC ACID/VITAMIN B COMP W-C TABLET PO SCH (08:58)
[2019-04-24] MEDS: POTASSIUM CHLORIDE 20MEQ/PACKET PO SCH (08:58)
[2019-04-24] MEDS: KETOROLAC TROMETHAMINE 0.4% OPHTH 5ML EACHEYE SCH ×2 (08:58→17:16)
[2019-04-24] MEDS: CLOPIDOGREL 75MG TABLET PO SCH (08:59)
[2019-04-24] MEDS: APIXABAN 2.5 MG TABLET PO SCH ×2 (08:59→17:17)
[2019-04-24] MEDS: ALLOPURINOL 100 MG TABLET PO SCH (08:59)
[2019-04-24] MEDS: FUROSEMIDE 40MG/4ML VIAL IVP SCH (08:59)
[2019-04-24] MEDS: CITALOPRAM HYDROBROMIDE 10MG TABLET PO SCH (08:59)
[2019-04-24] MEDS: FAMOTIDINE 20MG TABLET PO SCH (08:59)
[2019-04-24] MEDS: AMLODIPINE 10MG TABLET PO SCH (09:04)
[2019-04-24] MEDS: INSULIN GLARGINE UD 100 UNITS/ML SYR SUBCUT SCH (09:12)
[2019-04-24] MEDS ORDERED: FUROSEMIDE 40MG TABLET PO SCH (17:15)
== END 2019-04-24 22:00 | DRG 291 ==
LOC: 5EST 17:40
PROVIDERS: ADMIT Internal Medicine Nephrology; ATTEND Internal Medicine Nephrology
PROC: 5A09357 Assistance with Respiratory Ventilation, Less than 24 Consecutive Hours, Continuous Positive Airway Pressure (ICD-10-PCS; principal; 2019-04-16)
PROC: 5A09357 Assistance with Respiratory Ventilation, Less than 24 Consecutive Hours, Continuous Positive Airway Pressure (ICD-10-PCS; 2019-04-18)
PROC: 5A09357 Assistance with Respiratory Ventilation, Less than 24 Consecutive Hours, Continuous Positive Airway Pressure (ICD-10-PCS; 2019-04-19)
DX: I13.0 Hypertensive heart and chronic kidney disease with heart failure and stage 1 through stage 4 chronic kidney disease, or unspecified chronic kidney disease (principal); I50.33 Acute on chronic diastolic (congestive) heart failure; J96.00 Acute respiratory failure, unspecified whether with hypoxia or hypercapnia; J18.9 Pneumonia, unspecified organism; J96.20 Acute and chronic respiratory failure, unspecified whether with hypoxia or hypercapnia; E44.0 Moderate protein-calorie malnutrition; J98.11 Atelectasis; I31.3 Pericardial effusion (noninflammatory); D68.59 Other primary thrombophilia; I48.20 Chronic atrial fibrillation, unspecified; N17.9 Acute kidney failure, unspecified; T86.19 Other complication of kidney transplant; Z94.0 Kidney transplant status; G47.33 Obstructive sleep apnea (adult) (pediatric); E11.22 Type 2 diabetes mellitus with diabetic chronic kidney disease; D64.9 Anemia, unspecified; I48.0 Paroxysmal atrial fibrillation; I27.29 Other secondary pulmonary hypertension; E78.5 Hyperlipidemia, unspecified; N18.3 Chronic kidney disease, stage 3 (moderate); E04.1 Nontoxic single thyroid nodule; E11.42 Type 2 diabetes mellitus with diabetic polyneuropathy; R26.9 Unspecified abnormalities of gait and mobility; E55.9 Vitamin D deficiency, unspecified; I25.10 Atherosclerotic heart disease of native coronary artery without angina pectoris; I35.0 Nonrheumatic aortic (valve) stenosis; M10.9 Gout, unspecified; Y83.0 Surgical operation with transplant of whole organ as the cause of abnormal reaction of the patient, or of later complication, without mention of misadventure at the time of the procedure; Y92.89 Other specified places as the place of occurrence of the external cause; Z99.2 Dependence on renal dialysis; Z79.01 Long term (current) use of anticoagulants; Z79.02 Long term (current) use of antithrombotics/antiplatelets; Z79.4 Long term (current) use of insulin; Z79.899 Other long term (current) drug therapy; Z95.5 Presence of coronary angioplasty implant and graft; Z79.82 Long term (current) use of aspirin; Z68.33 Body mass index [BMI] 33.0-33.9, adult
CPT/HCPCS: 36415; 36600; 71045; 78580; 80048; 81003; 82375; 82805; 82962; 83735; 84484; 87389; 92523; 92610; 93005; 93306; 94640; 97110; 97116; 97162; 97166; 97535; G0515; J1815; J1940; J7507; J7517; J7620

== ENCOUNTER 2019-06-26 21:05 | Inpatient (IN) | payer MEDICARE, MEDICAID ==
[~2019-06-26] VITALS: Ht 134.6 cm; Wt 76.2 kg
[~2019-06-26 21:05] MED LIST changes: -ASPI-1393 MT; +ASPI-1497 MT; +CEPH-569 MT; +LEVO500T2 MT
[2019-06-26] MEDS ORDERED: ETOMIDATE 2MG/ML 10ML VIAL IV ONE ×2 (21:24→22:00)
[2019-06-26] MEDS ORDERED: VECURONIUM BROMIDE 10 MG/VIAL IV ONE ×2 (21:24→22:00)
[2019-06-26] MEDS ORDERED: VANCOMYCIN 1 G PREMIX 200 ML IV ONE (22:00)
[2019-06-26] MEDS ORDERED: PROPOFOL 10MG/ML 100ML 100 ML IV ONE (22:00)
[2019-06-26] MEDS ORDERED: SODIUM CHLORIDE 0.9% 1000ML BAG (SEPSIS BOLUS) IV ONE ×2 (22:00)
[2019-06-26] MEDS ORDERED: PIPERACILLIN/TAZ 3.375G PREMIX 50 ML IV ONE (22:00)
[2019-06-26 22:33] LABS: BG BASE EXCESS 3.3 mmol/L (-2.0-2.0); BG CARBOXYHEMOGLOBIN 0.4 % (0.5-1.5); BG DEOXYHEMOGLOBIN 6.1 % (0.0-5.0); BG FRACTION INSPIRED OXYGEN 50; BG HCO3 ACT 27.8 mmol/L (22.0-26.0); BG METHEMOGLOBIN 0.4 % (0.0-1.5); BG OXYGEN SATURATION 93.9 % (92.0-98.5); BG OXYHEMOGLOBIN 93.1 % (94.0-97.0); BG PCO2 42.5 mmHg (35.0-45.0); BG PH 7.434 (7.350-7.450); BG PO2 75.1 mmHg (75.0-100.0); BG SAMPLE SITE RIGHT RADIAL; BG TIDAL VOLUME(mL) 450 mL; BG TOTAL HEMOGLOBIN 6.6 g/dL (12.0-18.0); BG VENT MODE VENT - A/C; BG VENT RATE 14 set
[2019-06-26 23:39] LABS: MEAN CORPUSCULAR HEMOGLOBIN 29.3 pg (28.0-32.0); MEAN CORPUSCULAR VOLUME 93.2 fL (81.0-99.0); MEAN PLATELET VOLUME 9.7 fl (7.4-10.4); PLATELET 145 x1000/uL (130-400); RED BLOOD CELL COUNT 2.08 mill/uL (4.2-5.4); RED CELL DISTRIBUTION WIDTH 22.8 % (11.6-14.6)
[2019-06-26 23:40] LABS: INR 1.2; PROTHROMBIN TIME 12.5 sec (9.6-11.0)
[2019-06-26 23:44] LABS: HEMATOCRIT. 19.4 % (36.0-48.0); HEMOGLOBIN. 6.1 g/dL (12.0-16.0)
[2019-06-27] VITALS (49 sets, daily range): BP systolic 45–209; BP diastolic 16–152
[2019-06-27 00:09] LABS: CLARITY URINE CLOUDY (CLEAR); COLOR URINE YELLOW (YELLOW); KETONES URINE NEGATIVE (NEGATIVE); LEUKOCYTE ESTERASE URINE NEGATIVE (NEGATIVE); NITRITE URINE NEGATIVE (NEGATIVE); OCCULT BLOOD URINE NEGATIVE (NEGATIVE); PROTEIN URINE 1+ (NEGATIVE); SPECIFIC GRAVITY URINE 1.014 (1.005-1.030); UROBILINOGEN URINE 0.2 E.U./dL (0.2-1.0)
[2019-06-27 00:14] LABS: CHLORIDE 114 mEq/L (98-107)
[2019-06-27 00:40] LABS: PLATELET ESTIMATE NORMAL
[2019-06-27] MEDS ORDERED: MIDAZOLAM HCL 50 MG in DEXTROSE 5% WATER 40 ML IV PRN (03:45)
[2019-06-27 05:32] LABS: HEMATOCRIT. 30.8 % (36.0-48.0); MEAN CORPUSCULAR HEMOGLOBIN 31.3 pg (28.0-32.0); MEAN CORPUSCULAR VOLUME 96.7 fL (81.0-99.0); MEAN PLATELET VOLUME 8.6 fl (7.4-10.4); PLATELET 111 x1000/uL (130-400); RED BLOOD CELL COUNT 3.19 mill/uL (4.2-5.4); RED CELL DISTRIBUTION WIDTH 18.7 % (11.6-14.6)
[2019-06-27 05:36] LABS: CHLORIDE 117 mEq/L (98-107)
[2019-06-27] MEDS ORDERED: MORPHINE SULFATE 2 MG/ML CPJ (NOT FOR IM USE) IV PRN (07:30)
[2019-06-27 07:32] LABS: NUCLEATED RED BLOOD CELLS 3 /100 WBC
[2019-06-27 07:34] LABS: PLATELET ESTIMATE SLIGHTLY DECREASED
[2019-06-27 08:15] LABS: BG BASE EXCESS -6.7 mmol/L (-2.0-2.0); BG CARBOXYHEMOGLOBIN 0.6 % (0.5-1.5); BG DEOXYHEMOGLOBIN 4.8 % (0.0-5.0); BG FRACTION INSPIRED OXYGEN 50; BG HCO3 ACT 20.3 mmol/L (22.0-26.0); BG METHEMOGLOBIN 0.3 % (0.0-1.5); BG OXYGEN SATURATION 95.2 % (92.0-98.5); BG OXYHEMOGLOBIN 94.3 % (94.0-97.0); BG PCO2 46.6 mmHg (35.0-45.0); BG PH 7.257 (7.350-7.450); BG SAMPLE SITE RIGHT BRACHIAL; BG TIDAL VOLUME(mL) 450 mL; BG VENT MODE VENT - A/C; BG VENT RATE 14 set
[2019-06-27] MEDS: PANTOPRAZOLE SODIUM 40 MG/VIAL IV SCH ×2 (08:57→20:10)
[2019-06-27] MEDS: MEROPENEM 1,000 MG in SODIUM CHLORIDE 0.9% 100 ML IV SCH ×2 (08:57→20:10)
[2019-06-27] MEDS ORDERED: POTASSIUM CHLORIDE INJ 60 MEQ in DEXT 5% WATER 500 ML IV NR (09:00)
[2019-06-27] MEDS: DEXT 5%/0.45% NACL 1000ML 1,000 ML IV SCH (09:14)
[2019-06-27] MEDS ORDERED: LORAZEPAM 2MG/ML CPJ IV PRN (10:00)
[2019-06-27] MEDS ORDERED: IPRATROPIUM/ALBUTEROL 0.5-3(2.5)MG/3ML NEB HHN PRN (10:00)
[2019-06-27] MEDS ORDERED: FUROSEMIDE 40MG/4ML VIAL IVP NR (10:00)
[2019-06-27] MEDS ORDERED: NOREPINEPHRINE 32 MG in DEXT 5% WATER 468 ML IV PRN (10:15)
[2019-06-27] MEDS: TACROLIMUS 1MG CAPSULE PO SCH ×2 (12:21→17:04)
[2019-06-27] MEDS: PREDNISONE 20MG TABLET PO SCH (12:21)
[2019-06-27] MEDS: AMLODIPINE 10MG TABLET PO SCH ×2 (12:21→20:10)
[2019-06-27] MEDS: IPRATROPIUM/ALBUTEROL 0.5-3(2.5)MG/3ML NEB HHN SCH ×2 (15:19→20:40)
[2019-06-27] MEDS ORDERED: DEXTROSE 50% WATER 50ML SYRINGE IV PRN (16:30)
[2019-06-27 16:51] LABS: HEMATOCRIT 28.4 % (36.0-48.0); HEMOGLOBIN 9.1 g/dL (12.0-16.0)
[2019-06-27] MEDS: HYDRALAZINE HCL 25MG TABLET NG SCH ×2 (17:04→23:51)
[2019-06-27] MEDS: BLOOD SUGAR DIAGNOSTIC STRIP TEST SCH ×2 (17:21→21:00)
[2019-06-27] MEDS: INSULIN LISPRO 100 UNITS/ML SUBCUT SCH ×2 (18:52→22:14)
[2019-06-27] MEDS ORDERED: INSULIN LISPRO 100 UNITS/ML SUBCUT NR (19:15)
[2019-06-27] MEDS: POTASSIUM CHLORIDE 20MEQ TABLET SR PO SCH (19:57)
[2019-06-27 21:34] LABS: CLARITY URINE TURBID (CLEAR); COLOR URINE YELLOW (YELLOW); KETONES URINE NEGATIVE (NEGATIVE); LEUKOCYTE ESTERASE URINE TRACE (NEGATIVE); NITRITE URINE NEGATIVE (NEGATIVE); OCCULT BLOOD URINE 3+ (NEGATIVE); PROTEIN URINE 1+ (NEGATIVE); SPECIFIC GRAVITY URINE 1.011 (1.005-1.030); UROBILINOGEN URINE 0.2 E.U./dL (0.2-1.0)
[2019-06-27] MEDS ORDERED: VANCOMYCIN 750 MG in DEXT 5% WATER 250 ML IV SCH (22:00)
[2019-06-27] MEDS: VANCOMYCIN 750 MG PREMIX 150 ML IV SCH (22:13)
[2019-06-27] MEDS ORDERED: DEXTROSE 50% WATER 50ML SYRINGE IV NR (22:45)
[2019-06-27 22:53] LABS: HEMATOCRIT 25.8 % (36.0-48.0); HEMOGLOBIN 8.4 g/dL (12.0-16.0)
[2019-06-28] VITALS (77 sets, daily range): BP systolic 54–184; BP diastolic 26–119
[2019-06-28] MEDS: IPRATROPIUM/ALBUTEROL 0.5-3(2.5)MG/3ML NEB HHN SCH ×6 (00:40→20:56)
[2019-06-28] MEDS: BLOOD SUGAR DIAGNOSTIC STRIP TEST SCH ×4 (05:56→20:56)
[2019-06-28] MEDS: INSULIN LISPRO 100 UNITS/ML SUBCUT SCH ×4 (06:00→20:55)
[2019-06-28] MEDS: HYDRALAZINE HCL 25MG TABLET NG SCH ×3 (06:01→22:18)
[2019-06-28 06:50] LABS: HEMATOCRIT. 24.3 % (36.0-48.0); HEMOGLOBIN. 8.4 g/dL (12.0-16.0); MEAN CORPUSCULAR HEMOGLOBIN 32.1 pg (28.0-32.0); MEAN CORPUSCULAR VOLUME 93.6 fL (81.0-99.0); MEAN PLATELET VOLUME 9.5 fl (7.4-10.4); PLATELET 103 x1000/uL (130-400); RED CELL DISTRIBUTION WIDTH 18.9 % (11.6-14.6)
[2019-06-28 06:59] LABS: CHLORIDE 117 mEq/L (98-107)
[2019-06-28] MEDS: DEXT 5%/0.45% NACL 1000ML 1,000 ML IV SCH ×2 (07:00→07:34)
[2019-06-28 08:40] LABS: BG BASE EXCESS -5.3 mmol/L (-2.0-2.0); BG CARBOXYHEMOGLOBIN 0.3 % (0.5-1.5); BG DEOXYHEMOGLOBIN 3.7 % (0.0-5.0); BG FRACTION INSPIRED OXYGEN 50; BG HCO3 ACT 20.2 mmol/L (22.0-26.0); BG METHEMOGLOBIN 0.2 % (0.0-1.5); BG OXYGEN SATURATION 96.3 % (92.0-98.5); BG OXYHEMOGLOBIN 95.8 % (94.0-97.0); BG PCO2 39.3 mmHg (35.0-45.0); BG PH 7.329 (7.350-7.450); BG PO2 91.5 mmHg (75.0-100.0); BG SAMPLE SITE RIGHT BRACHIAL; BG TIDAL VOLUME(mL) 450 mL; BG TOTAL HEMOGLOBIN 9.9 g/dL (12.0-18.0); BG VENT MODE VENT - A/C; BG VENT RATE 18 set
[2019-06-28] MEDS: POTASSIUM CHLORIDE 20MEQ TABLET SR PO SCH (08:55)
[2019-06-28] MEDS: PREDNISONE 20MG TABLET PO SCH (08:55)
[2019-06-28] MEDS: TACROLIMUS 1MG CAPSULE PO SCH ×2 (08:55→18:50)
[2019-06-28] MEDS: AMLODIPINE 10MG TABLET PO SCH ×2 (08:55→21:03)
[2019-06-28] MEDS: PANTOPRAZOLE SODIUM 40 MG/VIAL IV SCH ×2 (08:55→21:02)
[2019-06-28] MEDS: MEROPENEM 1,000 MG in SODIUM CHLORIDE 0.9% 100 ML IV SCH ×2 (08:56→21:03)
[2019-06-28] MEDS ORDERED: PANTOPRAZOLE 40MG DR TABLET PO SCH (09:00)
[2019-06-28] MEDS ORDERED: FUROSEMIDE 40MG/4ML VIAL IVP NR (10:45)
[2019-06-28] MEDS: FENTANYL CITRATE/PF 500 MCG in SODIUM CHLORIDE 0.9% 40 ML IV PRN (12:43)
[2019-06-28 14:58] LABS: HEPATITIS B SURFACE ANTIGEN NEGATIVE
[2019-06-28 15:28] LABS: HEPATITIS A AB IGM NEGATIVE (NEGATIVE)
[2019-06-28] MEDS ORDERED: MIDAZOLAM HCL 2 MG/2 ML VIAL IV PRN (15:31)
[2019-06-28] MEDS ORDERED: FENTANYL CITRATE/PF 50MCG/ML 2ML VIAL IV PRN (15:32)
[2019-06-28 15:38] LABS: HEMATOCRIT 24.3 % (36.0-48.0); HEMOGLOBIN 8.2 g/dL (12.0-16.0)
[2019-06-28] MEDS ORDERED: MIDAZOLAM HCL 5 MG/5 ML VIAL ONE (16:41)
[2019-06-28] MEDS ORDERED: FENTANYL CITRATE/PF 50MCG/ML 2ML VIAL ONE (16:41)
[2019-06-28] MEDS: VANCOMYCIN 750 MG PREMIX 150 ML IV SCH (22:18)
[2019-06-28 23:35] LABS: HEMATOCRIT 23.2 % (36.0-48.0); HEMOGLOBIN 7.6 g/dL (12.0-16.0)
[2019-06-29] VITALS (96 sets, daily range): BP systolic 69–168; BP diastolic 34–137
[2019-06-29] MEDS: IPRATROPIUM/ALBUTEROL 0.5-3(2.5)MG/3ML NEB HHN SCH ×6 (00:11→20:40)
[2019-06-29] MEDS: FENTANYL CITRATE/PF 500 MCG in SODIUM CHLORIDE 0.9% 40 ML IV PRN ×2 (00:57→18:07)
[2019-06-29 04:08] LABS: NUCLEATED RED BLOOD CELLS 12 /100 WBC; PLATELET ESTIMATE DECREASED
[2019-06-29 05:45] LABS: HEMOGLOBIN. 8.2 g/dL (12.0-16.0); MEAN CORPUSCULAR HEMOGLOBIN 31.1 pg (28.0-32.0); MEAN CORPUSCULAR VOLUME 95.3 fL (81.0-99.0); MEAN PLATELET VOLUME 9.6 fl (7.4-10.4); PLATELET 97 x1000/uL (130-400); RED BLOOD CELL COUNT 2.62 mill/uL (4.2-5.4); RED CELL DISTRIBUTION WIDTH 19.6 % (11.6-14.6)
[2019-06-29 06:01] LABS: CHLORIDE 115 mEq/L (98-107)
[2019-06-29] MEDS: BLOOD SUGAR DIAGNOSTIC STRIP TEST SCH ×4 (06:21→21:00)
[2019-06-29] MEDS: INSULIN LISPRO 100 UNITS/ML SUBCUT SCH ×4 (06:30→21:45)
[2019-06-29] MEDS: HYDRALAZINE HCL 25MG TABLET NG SCH ×3 (06:30→21:45)
[2019-06-29 07:39] LABS: BG BASE EXCESS -4.7 mmol/L (-2.0-2.0); BG CARBOXYHEMOGLOBIN 0.5 % (0.5-1.5); BG DEOXYHEMOGLOBIN 4.4 % (0.0-5.0); BG METHEMOGLOBIN 0.3 % (0.0-1.5); BG OXYGEN SATURATION 95.6 % (92.0-98.5); BG OXYHEMOGLOBIN 94.8 % (94.0-97.0); BG PCO2 35.6 mmHg (35.0-45.0); BG PH 7.368 (7.350-7.450); BG SAMPLE SITE RIGHT BRACHIAL; BG TIDAL VOLUME(mL) 450 mL; BG TOTAL HEMOGLOBIN 9.1 g/dL (12.0-18.0); BG VENT MODE VENT - A/C; BG VENT RATE 18 set
[2019-06-29] MEDS: TACROLIMUS 1MG CAPSULE PO SCH ×2 (08:01→16:40)
[2019-06-29] MEDS: AMLODIPINE 10MG TABLET PO SCH ×2 (08:01→21:44)
[2019-06-29] MEDS: POTASSIUM CHLORIDE 20MEQ TABLET SR PO SCH (08:01)
[2019-06-29] MEDS: PREDNISONE 20MG TABLET PO SCH (08:01)
[2019-06-29] MEDS: PANTOPRAZOLE SODIUM 40 MG/VIAL IV SCH ×2 (08:01→21:44)
[2019-06-29] MEDS: MEROPENEM 1,000 MG in SODIUM CHLORIDE 0.9% 100 ML IV SCH (08:02)
[2019-06-29 11:12] LABS: NUCLEATED RED BLOOD CELLS 7 /100 WBC; PLATELET ESTIMATE SLIGHTLY DECREASED
[2019-06-29] MEDS: FLUCONAZOLE 200 MG/100ML BAG 100 ML IV SCH (16:06)
[2019-06-29] MEDS: MEROPENEM 500MG in NORMAL SALINE 50ML IV SCH (21:44)
[2019-06-30] VITALS (97 sets, daily range): BP systolic 81–161; BP diastolic 31–105
[2019-06-30] MEDS: IPRATROPIUM/ALBUTEROL 0.5-3(2.5)MG/3ML NEB HHN SCH ×6 (00:25→22:44)
[2019-06-30] MEDS: FENTANYL CITRATE/PF 500 MCG in SODIUM CHLORIDE 0.9% 40 ML IV PRN ×2 (04:08→16:17)
[2019-06-30 05:57] LABS: HEMATOCRIT. 22.4 % (36.0-48.0); HEMOGLOBIN. 7.3 g/dL (12.0-16.0); MEAN CORPUSCULAR HEMOGLOBIN 31.3 pg (28.0-32.0); MEAN CORPUSCULAR VOLUME 95.9 fL (81.0-99.0); MEAN PLATELET VOLUME 9.5 fl (7.4-10.4); PLATELET 70 x1000/uL (130-400); RED BLOOD CELL COUNT 2.34 mill/uL (4.2-5.4); RED CELL DISTRIBUTION WIDTH 20.1 % (11.6-14.6)
[2019-06-30] MEDS: BLOOD SUGAR DIAGNOSTIC STRIP TEST SCH ×4 (06:10→21:00)
[2019-06-30 06:22] LABS: CHLORIDE 113 mEq/L (98-107)
[2019-06-30] MEDS: HYDRALAZINE HCL 25MG TABLET NG SCH ×3 (06:24→21:09)
[2019-06-30] MEDS: DEXT 5%/0.45% NACL 1000ML 1,000 ML IV SCH (06:24)
[2019-06-30] MEDS: INSULIN LISPRO 100 UNITS/ML SUBCUT SCH ×4 (06:25→21:22)
[2019-06-30] MEDS: PANTOPRAZOLE SODIUM 40 MG/VIAL IV SCH ×2 (08:19→21:21)
[2019-06-30] MEDS: AMLODIPINE 10MG TABLET PO SCH ×2 (08:19→21:00)
[2019-06-30] MEDS: MEROPENEM 500MG in NORMAL SALINE 50ML IV SCH ×2 (08:20→21:21)
[2019-06-30] MEDS: PREDNISONE 20MG TABLET PO SCH (08:20)
[2019-06-30] MEDS: TACROLIMUS 1MG CAPSULE PO SCH ×2 (08:20→16:38)
[2019-06-30 08:29] LABS: NUCLEATED RED BLOOD CELLS 5 /100 WBC; PLATELET ESTIMATE DECREASED
[2019-06-30] MEDS ORDERED: VANCOMYCIN 500 MG PREMIX 100 ML IV SCH (09:00)
[2019-06-30] MEDS ORDERED: SODIUM CHLORIDE 0.9% 1,000 ML IV SCH (12:15)
[2019-06-30 13:07] LABS: HIV SCREEN 4G Non Reactive (Non Reactive)
[2019-06-30 13:09] LABS: TOTAL IRON BINDING CAPACITY 78 ug/dL (250-450)
[2019-06-30] MEDS: AZITHROMYCIN 500 MG in DEXT 5% WATER 250 ML IV SCH (16:15)
[2019-06-30] MEDS: FLUCONAZOLE 200 MG/100ML BAG 100 ML IV SCH (17:00)
[2019-06-30 20:15] LABS: HEMATOCRIT 27.4 % (36.0-48.0); HEMOGLOBIN 8.9 g/dL (12.0-16.0)
[2019-07-01] VITALS (82 sets, daily range): BP systolic 58–178; BP diastolic 23–119
[2019-07-01] MEDS: FENTANYL CITRATE/PF 500 MCG in SODIUM CHLORIDE 0.9% 40 ML IV PRN ×2 (01:54→14:15)
[2019-07-01] MEDS: IPRATROPIUM/ALBUTEROL 0.5-3(2.5)MG/3ML NEB HHN SCH ×6 (02:01→20:22)
[2019-07-01] MEDS: HYDRALAZINE HCL 25MG TABLET NG SCH ×3 (06:00→22:00)
[2019-07-01 06:04] LABS: HEMATOCRIT. 30.2 % (36.0-48.0); HEMOGLOBIN. 9.8 g/dL (12.0-16.0); MEAN CORPUSCULAR HEMOGLOBIN 30.7 pg (28.0-32.0); MEAN CORPUSCULAR VOLUME 94.4 fL (81.0-99.0); MEAN PLATELET VOLUME 10.2 fl (7.4-10.4); PLATELET 65 x1000/uL (130-400); RED CELL DISTRIBUTION WIDTH 19.9 % (11.6-14.6)
[2019-07-01] MEDS: BLOOD SUGAR DIAGNOSTIC STRIP TEST SCH ×4 (06:08→21:00)
[2019-07-01] MEDS: DEXT 5%/0.45% NACL 1000ML 1,000 ML IV SCH ×2 (06:11→11:43)
[2019-07-01] MEDS: INSULIN LISPRO 100 UNITS/ML SUBCUT SCH ×4 (06:12→21:10)
[2019-07-01] MEDS: PREDNISONE 20MG TABLET PO SCH (08:52)
[2019-07-01] MEDS: TACROLIMUS 1MG CAPSULE PO SCH (08:52)
[2019-07-01] MEDS: AMLODIPINE 10MG TABLET PO SCH ×2 (08:53→21:10)
[2019-07-01] MEDS: PANTOPRAZOLE SODIUM 40 MG/VIAL IV SCH ×2 (08:53→20:56)
[2019-07-01] MEDS: MEROPENEM 500MG in NORMAL SALINE 50ML IV SCH ×2 (08:53→20:57)
[2019-07-01 09:16] LABS: PLATELET ESTIMATE DECREASED
[2019-07-01] MEDS ORDERED: SODIUM POLYSTYRENE SULFONATE 15 G/60 ML BOT GT ONE (12:15)
[2019-07-01] MEDS: DOCUSATE SODIUM SUGAR FREE 100MG/10ML UDC GT PRN (13:31)
[2019-07-01] MEDS ORDERED: SODIUM POLYSTYRENE SULFONATE 15 G/60 ML BOT GT NR (14:00)
[2019-07-01] MEDS: AZITHROMYCIN 500 MG in DEXT 5% WATER 250 ML IV SCH (14:36)
[2019-07-01] MEDS: MICAFUNGIN 100 MG in SODIUM CHLORIDE 0.9% 100 ML IV SCH (16:00)
[2019-07-01] MEDS: TACROLIMUS 1MG CAPSULE GT SCH (16:00)
[2019-07-02] VITALS (78 sets, daily range): BP systolic 48–187; BP diastolic 20–110
[2019-07-02] MEDS: IPRATROPIUM/ALBUTEROL 0.5-3(2.5)MG/3ML NEB HHN SCH ×6 (00:20→20:10)
[2019-07-02] MEDS: FENTANYL CITRATE/PF 500 MCG in SODIUM CHLORIDE 0.9% 40 ML IV PRN (03:30)
[2019-07-02] MEDS: BLOOD SUGAR DIAGNOSTIC STRIP TEST SCH ×4 (05:49→21:38)
[2019-07-02] MEDS: INSULIN LISPRO 100 UNITS/ML SUBCUT SCH ×4 (05:51→22:01)
[2019-07-02] MEDS: DEXT 5%/0.45% NACL 1000ML 1,000 ML IV SCH (05:52)
[2019-07-02] MEDS: HYDRALAZINE HCL 25MG TABLET NG SCH ×3 (06:00→21:24)
[2019-07-02 07:39] LABS: HEMATOCRIT. 27.9 % (36.0-48.0); MEAN CORPUSCULAR HEMOGLOBIN 30.4 pg (28.0-32.0); MEAN CORPUSCULAR VOLUME 93.8 fL (81.0-99.0); MEAN PLATELET VOLUME 9.9 fl (7.4-10.4); PLATELET 58 x1000/uL (130-400); RED BLOOD CELL COUNT 2.97 mill/uL (4.2-5.4); RED CELL DISTRIBUTION WIDTH 19.8 % (11.6-14.6)
[2019-07-02 08:21] LABS: BG BASE EXCESS -8.8 mmol/L (-2.0-2.0); BG CARBOXYHEMOGLOBIN 0.3 % (0.5-1.5); BG DEOXYHEMOGLOBIN 4.4 % (0.0-5.0); BG FRACTION INSPIRED OXYGEN 50; BG HCO3 ACT 15.7 mmol/L (22.0-26.0); BG METHEMOGLOBIN 0.3 % (0.0-1.5); BG OXYGEN SATURATION 95.6 % (92.0-98.5); BG PCO2 29.1 mmHg (35.0-45.0); BG PH 7.351 (7.350-7.450); BG PO2 79.5 mmHg (75.0-100.0); BG SAMPLE SITE RIGHT BRACHIAL; BG TIDAL VOLUME(mL) 450 mL; BG TOTAL HEMOGLOBIN 9.3 g/dL (12.0-18.0); BG VENT MODE VENT - A/C; BG VENT RATE 18 set
[2019-07-02] MEDS: PANTOPRAZOLE SODIUM 40 MG/VIAL IV SCH ×2 (09:02→22:01)
[2019-07-02] MEDS: DOCUSATE SODIUM SUGAR FREE 100MG/10ML UDC GT PRN (09:02)
[2019-07-02] MEDS: MEROPENEM 500MG in NORMAL SALINE 50ML IV SCH ×2 (09:02→22:03)
[2019-07-02] MEDS: PREDNISONE 20MG TABLET PO SCH (09:03)
[2019-07-02] MEDS: AMLODIPINE 10MG TABLET PO SCH ×2 (09:03→21:00)
[2019-07-02] MEDS: TACROLIMUS 1MG CAPSULE GT SCH ×2 (09:03→17:18)
[2019-07-02 11:53] LABS: PLATELET ESTIMATE DECREASED
[2019-07-02] MEDS ORDERED: SODIUM POLYSTYRENE SULFONATE 15 G/60 ML BOT NG NR (14:30)
[2019-07-02] MEDS: AZITHROMYCIN 500 MG in DEXT 5% WATER 250 ML IV SCH (14:58)
[2019-07-02] MEDS ORDERED: FENTANYL CITRATE/PF 500 MCG in SODIUM CHLORIDE 0.9% 40 ML IV PRN (15:45)
[2019-07-02] MEDS ORDERED: COLISTIMETHATE SODIUM 150MG/VIAL INH SCH (16:00)
[2019-07-02] MEDS: MICAFUNGIN 100 MG in SODIUM CHLORIDE 0.9% 100 ML IV SCH (16:23)
[2019-07-02] MEDS ORDERED: SODIUM BICARBONATE 8.4% 1 MEQ/ML 50ML SYR IV NR (16:30)
[2019-07-02 17:53] LABS: BG BASE EXCESS -13.4 mmol/L (-2.0-2.0); BG CARBOXYHEMOGLOBIN 0.2 % (0.5-1.5); BG DEOXYHEMOGLOBIN 1.9 % (0.0-5.0); BG HCO3 ACT 13.2 mmol/L (22.0-26.0); BG METHEMOGLOBIN 0.3 % (0.0-1.5); BG OXYGEN SATURATION 98.1 % (92.0-98.5); BG OXYHEMOGLOBIN 97.6 % (94.0-97.0); BG PCO2 32.9 mmHg (35.0-45.0); BG PH 7.221 (7.350-7.450); BG PO2 140.3 mmHg (75.0-100.0); BG SAMPLE SITE RIGHT BRACHIAL; BG TIDAL VOLUME(mL) 450 mL; BG TOTAL HEMOGLOBIN 11.7 g/dL (12.0-18.0); BG VENT MODE VENT - A/C; BG VENT RATE 18 set
[2019-07-02] MEDS ORDERED: SODIUM BICARBONATE 8.4% 1 MEQ/ML 50ML SYR IV SCH (18:30)
[2019-07-02] MEDS ORDERED: PHENYLEPHRINE 80 MG in DEXT 5% WATER 492 ML IV PRN (20:00)
[2019-07-02] MEDS ORDERED: SODIUM CHLORIDE 0.9% 1,000 ML IV SCH (23:15)
[2019-07-03] VITALS: BP 209/69
[2019-07-03] MEDS: IPRATROPIUM/ALBUTEROL 0.5-3(2.5)MG/3ML NEB HHN SCH (00:03)
[2019-07-03 00:15] VITALS: BP 194/75
[2019-07-03 00:30] VITALS: BP 146/51
[2019-07-04 17:06] LABS: HISTOPLASMA ABS QT DID Negative (Neg:<1:1)
== END 2019-07-03 00:50 | disposition expired | DRG 870 ==
LOC: ER 21:05 → EDBEDREQ 23:45 → ENRESERV 23:48 → EDBEDREQ 23:48 → EDBEDREQTM 23:48 → MICUSO 06-27 02:17
PROVIDERS: ADMIT Internal Medicine Nephrology; ATTEND Internal Medicine Nephrology
PROC: 5A1955Z Respiratory Ventilation, Greater than 96 Consecutive Hours (ICD-10-PCS; principal; 2019-06-27)
PROC: 0DJ68ZZ Inspection of Stomach, Via Natural or Artificial Opening Endoscopic (ICD-10-PCS; 2019-06-28)
PROC: 30233N1 Transfusion of Nonautologous Red Blood Cells into Peripheral Vein, Percutaneous Approach (ICD-10-PCS; 2019-06-30)
DX: A41.9 Sepsis, unspecified organism (principal); E43 Unspecified severe protein-calorie malnutrition; J18.9 Pneumonia, unspecified organism; J96.01 Acute respiratory failure with hypoxia; N17.0 Acute kidney failure with tubular necrosis; I50.33 Acute on chronic diastolic (congestive) heart failure; R65.21 Severe sepsis with septic shock; G92 Toxic encephalopathy; K29.71 Gastritis, unspecified, with bleeding; D68.59 Other primary thrombophilia; N39.0 Urinary tract infection, site not specified; B49 Unspecified mycosis; E87.2 Acidosis; I13.0 Hypertensive heart and chronic kidney disease with heart failure and stage 1 through stage 4 chronic kidney disease, or unspecified chronic kidney disease; I48.19 Other persistent atrial fibrillation; Z68.41 Body mass index [BMI] 40.0-44.9, adult; T86.19 Other complication of kidney transplant; K92.1 Melena; Z94.0 Kidney transplant status; D50.0 Iron deficiency anemia secondary to blood loss (chronic); D69.6 Thrombocytopenia, unspecified; E11.22 Type 2 diabetes mellitus with diabetic chronic kidney disease; N18.9 Chronic kidney disease, unspecified; I27.29 Other secondary pulmonary hypertension; E11.65 Type 2 diabetes mellitus with hyperglycemia; D63.8 Anemia in other chronic diseases classified elsewhere; E78.00 Pure hypercholesterolemia, unspecified; E78.5 Hyperlipidemia, unspecified; E87.5 Hyperkalemia; E87.6 Hypokalemia; G47.33 Obstructive sleep apnea (adult) (pediatric); I25.10 Atherosclerotic heart disease of native coronary artery without angina pectoris; I35.2 Nonrheumatic aortic (valve) stenosis with insufficiency; K44.9 Diaphragmatic hernia without obstruction or gangrene; K76.0 Fatty (change of) liver, not elsewhere classified; M10.9 Gout, unspecified; Y83.0 Surgical operation with transplant of whole organ as the cause of abnormal reaction of the patient, or of later complication, without mention of misadventure at the time of the procedure; M19.90 Unspecified osteoarthritis, unspecified site; E66.01 Morbid (severe) obesity due to excess calories; Z66 Do not resuscitate; I25.2 Old myocardial infarction; Z79.01 Long term (current) use of anticoagulants; Z79.02 Long term (current) use of antithrombotics/antiplatelets; Z79.4 Long term (current) use of insulin; Z79.82 Long term (current) use of aspirin; Z86.73 Personal history of transient ischemic attack (TIA), and cerebral infarction without residual deficits; Z95.5 Presence of coronary angioplasty implant and graft; Z79.899 Other long term (current) drug therapy
CPT/HCPCS: 31500; 36415; 36556; 36600; 71045; 71250; 76700; 80048; 80053; 80061; 80076; 80197; 80202; 81003; 82270; 82375; 82728; 82805; 82962; 83540; 83550; 83605; 84132; 84134; 84145; 84484; 85014; 85018; 85025; 86645; 86698; 86705; 86709; 86803; 86850; 86870; 86900; 86920; 87070; 87077; 87106; 87186; 87340; 87389; 87804; 87899; 93005; 94002; 94003; 94640; 99285; A6261; C9113; J0456; J0770; J1450; J1815; J1940; J2185; J2248; J2250; J2270; J2543; J2704; J3010; J3370; J3480; J3490; J7030; J7050; J7060; J7507; J7512; P9016; A4315